=== PATIENT | male | born 1955 | race Asian ===

== ENCOUNTER 2018-09-22 08:49 | Outpatient (CLI) | payer BC, SELFPAY ==
[2018-09-22 09:04] VITALS: BP 143/70; PULSE 63; RESP 18; TEMP 36.6; O2SAT 99
[2018-09-22 09:16] LABS: INR 1.1 (0.9-1.1); Prothrombin Time 10.5 sec (9.3-11.0)
[2018-09-22] MEDS: Lactated Ringers 1,000 ML 80 ML IV (10:06)
[2018-09-22] MEDS: Midazolam 2 MG/2 ML VIAL IVP (10:06)
[2018-09-22 10:17] VITALS: BP 153/70; PULSE 70; RESP 20; O2SAT 100
[2018-09-22] MEDS: methylPREDNISolone ACETATE 40 MG/ML VIAL IJ (10:19)
[2018-09-22] MEDS: Omnipaque 240 MG/ML 50 ML BTL IJ (10:19)
--- NOTE | 2018-09-22 10:22 | DI.RAD_ITS ---
SYMPTOM/DIAGNOSIS: CERVICAL RADICULOPATHY, CERVICAL EPIDURAL STEROID INJECTION C-ARM: Fluoroscopy Time: 19.1 sec 2.13 Images submitted from the pain clinic demonstrate needle positioning over the lower cervical spine during the performance of a cervical epidural steroid injection. Please see Dr. Brown's procedure report for further information.
--- NOTE | 2018-09-22 10:24 | PDOC.PAIN ---
Pain Clinic Procedure Note Current Active Problems Problem Status Onset Cervical radiculopathy at C7 Chronic 03/03/16 Cervical Epidural Steroid Injection CASSI CORRIGAN has been referred to the [facility] for cervical epidural steroid injection. COMMENTS:The patient has stenosis in the foramen on the left at C6-7. He had an injection approximately a year ago with good relief. Patient was interviewed and the medical record reviewed. There were no medical, pharmacologic, radiographic or other structural contraindications to attempting fluoroscopically guided epidural steroid injection. Risks and expected side effects as well as potential benefit of the procedure were reviewed and voiced concerns addressed. The printed consent form was signed and witnessed. Standard time-out procedure was performed. The patient was placed in the prone position on the fluoroscopy table and automated blood pressure cuff and pulse oximeter applied. The skin entry point for entering the epidural space by a midline C7-T1 interlaminar approach was identified under fluoroscopy and marked. Following thorough Chlorhexadine preparation of the skin and draping and 1% lidocaine infiltration of the skin entry point and subcutaneous tissues, an 17 gauge Tuohy needle was placed under fluoroscopic guidance and with loss of resistance technique into the epidural space. Upon needle placement and loss of resistance there were no paresthesiae or return of blood or CSF through the needle. An Arrow catheter was thread cephalad to the C6 level {left} of midline. 1ml of Omnipaque 240 were injected with clear epidural spread in the A/P, lateral and oblique views. 80mg Depomedrol with 1ml sterile normal saline were injected through the catheter with no unusual discomfort expressed. Vital signs were stable throughout the procedure and were as recorded in the docflowsheet by the nursing staff. If given, dosages of intravenous drugs for anxiolysis and analgesia were documented in MAR. Follow up plans and appointments were discussed. Post procedure instruction was given as documented in nursing documentation and having met discharge criteria and was discharged from the [facility]. COMMENTS: Versed 1 mg given. He will follow-up as needed. Could repeat if he gets long-term relief otherwise would get an updated MRI of his cervical spine. Last one was from 2017. CC: Guerita Vásquez
== END 2018-09-22 09:09 ==
PROVIDERS: PCP Family Medicine; Visit Provider Anesthesiology Pain Medicine
DX: M54.12 Radiculopathy, cervical region (principal)
CPT/HCPCS: 62321; 72040; 85610; J1030; J2250; Q9967

== ENCOUNTER 2018-10-01 01:32 | Outpatient (CLI) | payer BC, SELFPAY ==
--- NOTE | 2018-10-01 12:45 | DI.RAD_ITS ---
SYMPTOMS/DIAGNOSIS: BACK PAIN, M54.9, LEG PAIN, M79.606, S/P LUMBAR FUSION, Z98.1 LUMBOSACRAL SPINE: Multiple views were obtained including flexion and extension lateral views. There are Mcarthur rods in place at L4-5 bilaterally with disc prosthesis also noted at L4-5. Moderate hypertrophic spurring of the vertebral endplates is noted, particularly at L3-4. There is probable fusion of the L5 and S1 endplates. No spondylolysis or spondylolisthesis. No evidence of compression fracture. Flexion and extension views are unremarkable.
== END 2018-10-01 01:52 ==
PROVIDERS: PCP Family Medicine; Visit Provider Neurological Surgery
DX: M54.5 Low back pain (principal); M79.606 Pain in leg, unspecified; Z98.1 Arthrodesis status
CPT/HCPCS: 72110

== ENCOUNTER 2018-12-22 00:39 | Outpatient (CLI) | payer BC, SELFPAY ==
--- NOTE | 2018-12-22 09:44 | DI.MRI_ITS ---
SYMPTOM/DIAGNOSIS: FAILED BACK SURGERY SYNDROME, L4-5 FUSION IN 2018, M96.1 MRI LUMBAR SPINE: Pre and post contrast MRI of the lumbar spine was obtained. Comparison 04/07/17 Since the prior examination the patient has undergone posterior L4 and l5 laminectomy with posterior spinal fusion rods and pedicle screws. The conus medullaris has a normal appearance and location. There is degenerative disc disease throughout the lumbar spine. End plate degenerative signal changes are seen at L2-3, L3-4, L4-5 and L5-S1. No definite central spinal canal stenosis is present. There does appear to be apparent mild bilateral neuroforaminal stenosis at L5-S1 and L4-L5. The remaining neural foramen appear patent. Following contrast administration, no abnormal enhancement is identified. No abnormal focal fluid collections are seen in the soft tissues to suggest abscess. There does appear to be mild anterolisthesis of L5 on S1. This is unchanged compared to the prior examination. IMPRESSION: 1. Post surgical changes at L5-S1 2. Multilevel neuroforaminal narrowing. No significant central spinal canal stenosis 3. Study is limited due to orthopaedic artifact.
[2018-12-22 11:13] LABS: CREATININE 0.74 mg/dL (0.70-1.30)
[2018-12-22] MEDS: Normal Saline Flush 10 ML SYR IVP (11:37)
[2018-12-22] MEDS: Gadoterate meglumine 20 ML VIAL 14 ML IVP (11:38)
== END 2018-12-22 00:59 ==
PROVIDERS: PCP Family Medicine; Visit Provider Nurse Practitioner Family
DX: M96.1 Postlaminectomy syndrome, not elsewhere classified (principal); Z98.1 Arthrodesis status
CPT/HCPCS: 72158; 82565

== ENCOUNTER 2019-01-13 11:16 | Outpatient (CLI) | payer BC, SELFPAY ==
[2019-01-13 11:20] VITALS: BP 114/61; PULSE 72; RESP 18; TEMP 36.5; O2SAT 100
[2019-01-13 11:58] LABS: INR 1.3 (0.9-1.1); Prothrombin Time 12.7 sec (9.3-11.0)
[2019-01-13] MEDS: Dexamethasone Sod. Phos./Pres-Free 10 MG/ML VIAL IJ (12:20)
[2019-01-13] MEDS: Omnipaque 240 MG/ML 50 ML BTL IJ (12:25)
--- NOTE | 2019-01-13 12:27 | PDOC.PAIN_ITS ---
Pain Clinic Procedure Note Current Active Problems Problem Status Onset Lumbosacral radiculopathy LUMBAR / SACRAL TRANSFORAMINAL INJECTION CASSI CORRIGAN has been referred to the [facility] for a transforaminal nerve root block and steroid injection. COMMENTS: Previously evaluated by Ms. Hood in our clinic. Patient was interviewed and the medical record reviewed. There were no medical, pharmacologic, radiographic or other structural contraindications to attempting fluoroscopically guided transforaminal nerve root block and epidural steroid injection. Risks and expected side effects as well as potential benefit of the procedure were reviewed and voiced concerns addressed. The printed consent form was signed and witnessed. Standard time-out procedure was performed. Patient was placed in the prone position on the fluoroscopy table and automated blood pressure cuff and pulse oximeter applied. Fluoroscopy was utilized to identify the left neural foramen between L5 and S1. A skin bela was made for the needle insertion site. A Chlorhexadine prep was carried out, and sterile drapes were applied. Local anesthesia was achieved in the skin and subcutaneous tissues. A 22 gauge curved tip spinal needle was then inserted, advanced with fluoroscopic guidance into the neural foramen, confirmed on the lateral view. After negative aspiration, 2 ml of Omnipaque 240 was injected confirming position in A/P and lateral views. This showed a good spread of dye transforaminally into the epidural space. There was no vascular update with contrast injection under continuous fluoroscopy and digital substraction. 15 mg of Dexamethasone was injected, followed by 0.5 ml of 1% Xylocaine flush for the nerve root block, as well. There was no unusual discomfort expressed.The needle was withdrawn. The patient tolerated the procedure well. A Band-Aid was applied. Vital signs were stable throughout the procedure and were as recorded in nursing records. If given, dosages of intravenous drugs for anxiolysis and analgesia were documented in nursing records. Follow up plans and appointments were discussed. Post procedure instruction was given as documented in nursing records and patient was discharged in the care of an identified coal tram driver. COMMENTS: This procedure can be completed up to 3 times per 12 months if it is found to be effective. CC: Guerita Vásquez
--- NOTE | 2019-01-13 12:28 | DI.RAD_ITS ---
SYMPTOMS/DIAGNOSIS: LUMBAR TRANSFORAMINAL INJECTION, LUMBAR RADICULOPATHY C-ARM FLUOROSCOPY: Fluoroscopy Time: 25.4 sec., 5.18 mGy. C-arm fluoroscopy was utilized by Dr. Wagoner during reported lumbar transforaminal injection. Hardcopy shows injection on the left at what appears to be the L 5 - S 1 level.
[2019-01-13 12:33] VITALS: BP 156/77; PULSE 69; RESP 20; O2SAT 99
== END 2019-01-13 11:36 ==
PROVIDERS: PCP Family Medicine; Visit Provider Preventive Medicine Occupational Medicine
DX: M54.17 Radiculopathy, lumbosacral region (principal)
CPT/HCPCS: 64483; 36415; 72100; 85610; Q9967

== ENCOUNTER 2019-01-24 01:08 | Outpatient (CLI) | payer BC, SELFPAY ==
--- NOTE | 2019-01-24 15:33 | DI.US_ITS ---
SYMPTOM/DIAGNOSIS: R/O HYDRONEPHROSIS R39.9 RENAL ULTRASOUND: Comparison is made with 29 June 2017. The kidneys are normal in size and echogenicity and show normal parenchymal thickness No hydronephrosis is seen. There are no large renal calculi. The prostate volume measures 17 cc. The prevoid bladder volume measures 129 cc. Both ureteral jets were visualized. No bladder mass is identified. There is no post void residual in the bladder. IMPRESSION: Negative enal ultrasound. No evidence of hydronephrosis.
== END 2019-01-24 01:28 ==
PROVIDERS: PCP Family Medicine; Visit Provider Urology
DX: R39.9 Unspecified symptoms and signs involving the genitourinary system (principal)
CPT/HCPCS: 76770

== ENCOUNTER 2019-02-14 08:44 | Outpatient (CLI) | payer BC, SELFPAY ==
[2019-02-15 09:42] LABS: PSA, Screening 0.2 ng/ml (0-4.5)
== END 2019-02-14 09:04 ==
PROVIDERS: PCP Family Medicine; Visit Provider Urology
DX: R39.9 Unspecified symptoms and signs involving the genitourinary system (principal); Z12.5 Encounter for screening for malignant neoplasm of prostate
CPT/HCPCS: 36415; 84153

== ENCOUNTER 2019-07-12 07:45 | Outpatient (CLI) | payer BC, SELFPAY ==
[2019-07-12 08:23] VITALS: BP 148/69; PULSE 57; RESP 16; TEMP 36; O2SAT 99
[2019-07-12 08:40] LABS: INR 1.1 (0.9-1.1); Prothrombin Time 11.4 sec (9.3-11.0)
--- NOTE | 2019-07-12 08:51 | PDOC.PAIN ---
Pain Clinic Procedure Note Procedure Note Procedure Note: Cervical Epidural Steroid Injection CASSI CORRIGAN has been referred to the [facility] for interlaminar cervical epidural steroid injection. Pre-operative diagnosis: cervical radiculopathy Post-operative diagnosis: same as above COMMENTS: patient has prior ACDF and had received prior MEETA with extended pain relief. his pain involves neck and left upper extremity. He takes Coumadin for mechanical aortic valve, he discontinued his coumadin for today's procedure and INR checked this AM is 1.1 Patient was interviewed and the medical record reviewed. There were no medical, pharmacologic, radiographic or other structural contraindications to attempting fluoroscopically guided epidural steroid injection. Risks and expected side effects as well as potential benefit of the procedure were reviewed and voiced concerns addressed. The printed consent form was signed and witnessed. Standard time-out procedure was performed. The patient was placed in the prone position on the fluoroscopy table and automated blood pressure cuff and pulse oximeter applied. The skin entry point for entering the epidural space by a midlineT1-T2 interlaminar approach was identified under fluoroscopy and marked. Following thorough Chlorhexadine preparation of the skin and draping and 1% lidocaine infiltration of the skin entry point and subcutaneous tissues, an 17 gauge Tuohy needle was placed under fluoroscopic guidance and with loss of resistance technique into the epidural space. Upon needle placement and loss of resistance there were no paresthesiae or return of blood or CSF through the needle. Then a 19 gauge Arrow catheter was threaded into the epidural space to approximately C5-6 level. 1ml of Omnipaque 240 were injected with clear epidural spread in the A/P, oblique views. 15mg of preservative-free Dexamethasone with 1ml sterile normal saline were injected through the needle with no unusual discomfort expressed. The needle was removed without difficulty. A bandage was placed. Vital signs were stable throughout the procedure and were as recorded in the docflowsheet by the nursing staff. If given, dosages of intravenous drugs for anxiolysis and analgesia were documented in MAR. Follow up plans and appointments were discussed. Post procedure instruction was given as documented in nursing documentation and having met discharge criteria and was discharged from the [facility]. COMMENTS: patient received IV versed 1mg for this procedure. Otherwise tolerated procedure without issue. Jeri Mendoza MD Pain Management CC: Guerita Vásquez
[2019-07-12] MEDS: Lactated Ringers 1,000 ML 80 ML IV (09:14)
[2019-07-12] MEDS: Midazolam 2 MG/2 ML VIAL IVP (09:18)
[2019-07-12 09:30] VITALS: BP 161/74; PULSE 65; RESP 20; O2SAT 100
[2019-07-12] MEDS: Dexamethasone Sod. Phos./Pres-Free 10 MG/ML VIAL IJ (09:32)
[2019-07-12] MEDS: Omnipaque 240 MG/ML 50 ML BTL IJ (09:33)
--- NOTE | 2019-07-12 10:24 | DI.RAD_ITS ---
EXAM: XR PAIN CLINIC CERVICAL SP 2V CLINICAL HISTORY: Dx: cervical radiculopathy,CERVICAL EPIDURAL STEROID INJECTION TECHNIQUE: Fluoroscopy was provided for the referring physician for guidance with performing injecti on procedure. COMPARISON: No exams were available for comparison FINDINGS: Please see procedure note for details. Fluoro time: 37.8 seconds
== END 2019-07-12 08:05 ==
PROVIDERS: PCP Family Medicine; Visit Provider Internal Medicine
DX: M54.12 Radiculopathy, cervical region (principal)
CPT/HCPCS: 62321; 72040; 85610; J2250; Q9967

== ENCOUNTER 2019-11-04 11:06 | Outpatient (REF) | payer BC, SELFPAY ==
[2019-11-04 20:42] LABS: HGB 14.2 g/dL (13.5-17.5); Mean Corpuscular Hemoglobin 26.8 pg (27.0-33.0); Mean Corpuscular Volume 81.3 fL (80-95); Mean Platelet Volume 11.2 fL (8.0-11.0); Platelet Count 245 x1000/uL (130-400); RBC 5.29 m/cumm (4.50-6.00); RBC Distribution Width 14.7 % (11.8-14.1); White Blood Cell Count 5.37 k/cumm (4.4-10.8)
[2019-11-04 20:45] LABS: ALT 29 U/L (16-63); AST 20 U/L (15-37); Albumin 3.9 g/dL (3.4-5.0); Alkaline Phosphatase 56 U/L (46-116); Anion Gap 6.6 mmol/L (3-11); BUN 23 mg/dL (7-18); Bilirubin, Total 0.6 mg/dL (0.2-1.0); CO2 26.4 mmol/L (21.0-32.0); CREATININE 0.87 mg/dL (0.70-1.30); Calculated LDL 108 mg/dL (<100); Chloride 105 mmol/L (98-107); Cholesterol 175 mg/dL (<200); Glucose 97 mg/dL (74-106); HDL Cholesterol 52 mg/dL (40-60); Potassium 4.3 mmol/L (3.5-5.1); Sodium 138 mmol/L (136-145); Total Protein 6.6 g/dL (6.4-8.2); Triglyceride 75 mg/dL (<150)
== END 2019-11-04 11:26 ==
LOC: NCHCN 11:06
PROVIDERS: PCP Family Medicine; Visit Provider Family Medicine
DX: Z00.00 Encounter for general adult medical examination without abnormal findings (principal); I10 Essential (primary) hypertension; Z95.2 Presence of prosthetic heart valve
CPT/HCPCS: 80053; 80061; 85027

== ENCOUNTER 2019-11-17 13:24 | Outpatient (CLI) | payer BC, SELFPAY ==
[2019-11-17 13:41] VITALS: BP 108/69; PULSE 67; RESP 16; TEMP 36.1; O2SAT 99
[2019-11-17] MEDS: Omnipaque 240 MG/ML 50 ML BTL IJ (14:41)
[2019-11-17] MEDS: Dexamethasone Sod. Phos./Pres-Free 10 MG/ML VIAL IJ (14:41)
--- NOTE | 2019-11-17 14:44 | DI.RAD_ITS ---
EXAM: XR PAIN CLINIC LUMBAR SP 2V CLINICAL HISTORY: Dx: Lumbar Radiculopathy, TRANSFORAMINAL EPIDURAL STEROID INJECTION TECHNIQUE: Fluoroscopy was provided for the referring physician for guidance with performing injecti on procedure. COMPARISON: No exams were available for comparison FINDINGS: Please see procedure note for details. Fluoro time: 31.1 SECONDS RADIATION DOSE DELIVERED:
[2019-11-17 14:55] VITALS: BP 139/76; PULSE 60; RESP 19; O2SAT 100
== END 2019-11-17 13:44 ==
PROVIDERS: PCP Family Medicine; Visit Provider Preventive Medicine Occupational Medicine
DX: M54.17 Radiculopathy, lumbosacral region (principal)
CPT/HCPCS: 64483; 72100; Q9967

== ENCOUNTER 2019-11-17 13:40 | Outpatient (CLI) | payer BC, SELFPAY ==
[2019-11-17 14:03] LABS: INR 1.3 (0.9-1.1); Prothrombin Time 13.1 sec (9.3-11.0)
--- NOTE | 2019-11-17 14:46 | PDOC.PAIN ---
Pain Clinic Procedure Note Procedure Note Procedure Note: LUMBAR / SACRAL TRANSFORAMINAL INJECTION at the Left L5 CASSI CORRIGAN has been referred to the [facility] for a transforaminal nerve root block and steroid injection. COMMENTS: He had great pain relief until this past July from his December 2018 TFESI at left L5. DX: Lumbosacral radiculopathy Patient was interviewed and the medical record reviewed. There were no medical, pharmacologic, radiographic or other structural contraindications to attempting fluoroscopically guided transforaminal nerve root block and epidural steroid injection. Risks and expected side effects as well as potential benefit of the procedure were reviewed and voiced concerns addressed. The printed consent form was signed and witnessed. Standard time-out procedure was performed. Patient was placed in the prone position on the fluoroscopy table and automated blood pressure cuff and pulse oximeter applied. Fluoroscopy was utilized to identify the left L5 neural foramen between L5 and S1. A skin bela was made for the needle insertion site. A Chlorhexadine prep was carried out, and sterile drapes were applied. Local anesthesia was achieved in the skin and subcutaneous tissues. A 22 gauge curved tip spinal needle was then inserted, advanced with fluoroscopic guidance into the neural foramen, confirmed on the lateral view. After negative aspiration, 2 ml of Omnipaque 240 was injected confirming position in A/P and lateral views. This showed a good spread of dye transforaminally into the epidural space. There was no vascular update with contrast injection under continuous fluoroscopy and digital substraction. 15 mg of Dexamethasone was injected, followed by 0.5 ml of 1% Xylocaine flush for the nerve root block, as well. There was no unusual discomfort expressed.The needle was withdrawn. The patient tolerated the procedure well. A Band-Aid was applied. Vital signs were stable throughout the procedure and were as recorded in nursing records. If given, dosages of intravenous drugs for anxiolysis and analgesia were documented in nursing records. Follow up plans and appointments were discussed. Post procedure instruction was given as documented in nursing records and patient was discharged in the care of an identified electric pile driver operator. COMMENTS:Reproduction of his left leg pain with this procedure. Near complete pain relief after the procedure. CC: Guerita Vásquez
== END 2019-11-17 14:00 ==
LOC: LBN 13:46 → LBO 13:47
PROVIDERS: PCP Family Medicine; Visit Provider Preventive Medicine Occupational Medicine
DX: M54.17 Radiculopathy, lumbosacral region (principal); Z79.01 Long term (current) use of anticoagulants
CPT/HCPCS: 36415; 85610

== ENCOUNTER 2019-12-26 01:26 | Outpatient (CLI) | payer BC, SELFPAY ==
--- NOTE | 2019-12-26 | DI.MRI_ITS ---
EXAM: MR CERVICAL SPINE WO/W CLINICAL HISTORY: CERVICAL MYELOPATHY, PRIOR ACDF C5-6 TECHNIQUE: Multiplanar multisequence MRI of the cervical spine was performed without intravenous con trast. COMPARISON: MR MRI - CERVICAL SPINE W/WO from 05/09/2015 CR XR lumbar spine complete from 10/01/2018 FINDINGS: BONES: Vertebral body heights are maintained. Intervertebral disc spaces are normal. Alignment is nor mal. Bone marrow signal intensity is within normal limits. The patient is status post anterior fusio n at C5-6. Metallic hardware causes mild artifact. CERVICAL CORD: Craniovertebral junction is unremarkable. The cervical cord is normal size and signal intensity. SOFT TISSUES: Unremarkable. C2-3: Minimal disc bulging C3-4: Disc osteophytes eccentric toward the left causing left neural foraminal narrowing and effaceme nt of the anterior CSF space. C4-5: Mild loss of disc height. Broad-based disc osteophytes causing bilateral neural foraminal narr owing and effacement of the anterior CSF space. C5-6: Level of cervical fusion. Mild bilateral neural foraminal narrowing. No central canal stenosi s. C6-7: Broad-based disc osteophytes causing bilateral neural foraminal narrowing and mild effacement o f the anterior CSF space. C7-T1: No disc herniation or bulge is identified. IMPRESSION: Status post anterior fusion at C5-6. Multi level degenerative disc changes causing effacement of the anterior CSF space and neural foraminal narrowing. DATA REPOSITORY:
[2019-12-26] MEDS: Normal Saline Flush 10 ML SYR IVP (15:47)
[2019-12-26] MEDS: Gadoterate meglumine 20 ML VIAL 15 ML IVP (15:49)
== END 2019-12-26 01:46 ==
PROVIDERS: PCP Family Medicine; Visit Provider Nurse Practitioner Family
DX: M50.01 Cervical disc disorder with myelopathy, high cervical region (principal)
CPT/HCPCS: 72156

== ENCOUNTER 2020-01-31 08:07 | Outpatient (CLI) | payer BC, SELFPAY ==
--- NOTE | 2020-01-31 06:00 | DI.RAD_ITS ---
EXAM: XR PAIN CLINIC CERVICAL SP 2V CLINICAL HISTORY: Dx: Cervical Radiculopathy TECHNIQUE: 2D and realtime digital imaging was performed. CONTRAST MATERIAL: Refer to procedure report. COMPARISON: No exams were available for comparison FINDINGS: Fluoroscopy was provided for Dr. Mendoza during the performance of a cervical epidural steroid injection. Please refer to the procedure report for complete details. Fluoro time: 38.1 seconds IMPRESSION:
[2020-01-31 08:19] VITALS: BP 143/71; PULSE 64; RESP 16; TEMP 37; O2SAT 100
[2020-01-31 08:39] LABS: INR 1.1 (0.9-1.1); Prothrombin Time 11.2 sec (9.3-11.0)
[2020-01-31] MEDS: Lactated Ringers 1,000 ML 80 ML IV (09:22)
[2020-01-31] MEDS: Midazolam 2 MG/2 ML VIAL IVP (09:26)
[2020-01-31 09:39] VITALS: BP 140/72; PULSE 70; RESP 14; O2SAT 100
[2020-01-31] MEDS: Dexamethasone Sod. Phos./Pres-Free 10 MG/ML VIAL IJ (09:40)
[2020-01-31] MEDS: Omnipaque 240 MG/ML 50 ML BTL IJ (09:40)
--- NOTE | 2020-01-31 09:47 | PDOC.PAIN_ITS ---
Pain Clinic Procedure Note Procedure Note Procedure Note: Cervical Epidural Steroid Injection CASSI CORRIGAN has been referred to the [facility] for interlaminar cervical epidural steroid injection. Pre-operative diagnosis: cervical radiculopathy, cervical post-laminectomy s yndrome Post-operative diagnosis: same as above COMMENTS: patient has prior ACDF and had received prior MEETA with extended pain relief. his pain involves neck and left upper extremity. He takes Coumadin for mechanical aortic valve, he discontinued his coumadin for today's procedure and INR checked this AM is 1.1. patient reports last injection done in 07/2019 provided significant improvement of his symptoms until about mid-November. He had a recent lumbar TFESI which he is unclear how much pain relief he has gotten. He feels his leg symptoms is related to his neck symptom, and he attributes all of this to his prior rheumatic fever causing spine related pine and urologic symptoms. Patient was interviewed and the medical record reviewed. There were no medical, pharmacologic, radiographic or other structural contraindications to attempting fluoroscopically guided epidural steroid injection. Risks and expected side effects as well as potential benefit of the procedure were reviewed and voiced concerns addressed. The printed consent form was signed and witnessed. Standard time-out procedure was performed. The patient was placed in the prone position on the fluoroscopy table and automated blood pressure cuff and pulse oximeter applied. The skin entry point for entering the epidural space by a midlineT1-T2 interlaminar approach was identified under fluoroscopy and marked. Following thorough Chlorhexadine preparation of the skin and draping and 1% lidocaine infiltration of the skin entry point and subcutaneous tissues, an 17 gauge Tuohy needle was placed under fluoroscopic guidance and with loss of resistance technique into the epidural space. Upon needle placement and loss of resistance there were no paresthesiae or return of blood or CSF through the needle. Then a 19 gauge Arrow catheter was threaded into the epidural space to approximately C4 level. 1ml of Omnipaque 240 were injected with clear epidural spread in the A/P, oblique views. 15mg of preservative-free Dexamethasone with 0.5ml sterile normal saline were injected through the needle with no unusual discomfort expressed. The needle was removed without difficulty. A bandage was placed. Vital signs were stable throughout the procedure and were as recorded in the docflowsheet by the nursing staff. If given, dosages of intravenous drugs for anxiolysis and analgesia were documented in MAR. Follow up plans and appointments were discussed. Post procedure instruction was given as documented in nursing documentation and having met discharge criteria and was discharged from the [facility]. COMMENTS: patient received IV versed 1mg for this procedure. Otherwise tolerated procedure without issue. Patient feels anxious before cervical epidural injections and appreciates IV anxiolysis. Jeri Mendoza MD Pain Management CC: Guerita Vásquez
--- NOTE | 2020-03-27 13:14 | PDOC.PAIN ---
Pain Clinic Procedure Note Procedure Note Procedure Note: I called patient at his request to answer questions prior to his scheduled lumbar TFESI. patient reports that he has back pain that radiates down both legs. He is wondering if his next procedure can cover a bigger symptomatic area than one specific nerve. I discussed with him that we can use a caudal IAN approach instead of left L5 TFESI, given his prior history of lumbar spine surgery. He is in agreement and understanding. Of note, he reported that he was diangosed with rheumatic fever about 50 years ago and he was placed on strict bed rest that lasted for amost 15 months, ever since then, he feels that his spine has gotten deconditioned and both neck and lumbar areas has flare ups. he is doing well since his last MEETA, near resolution of his radicular symptoms but continue to have axial neck pain. I would change his next TFESI to caudal IAN. Coumadin should be discontinued and INR/PT should be checked on day of procedure. INR should be 1.2 or less. Jeri Mendoza MD Pain Management
== END 2020-01-31 08:27 ==
PROVIDERS: PCP Family Medicine; Visit Provider Internal Medicine
DX: M54.12 Radiculopathy, cervical region (principal); M96.1 Postlaminectomy syndrome, not elsewhere classified
CPT/HCPCS: 36415; 62321; 72040; 85610; J2250; Q9967

== ENCOUNTER 2020-04-10 07:58 | Outpatient (CLI) | payer BC, SELFPAY ==
--- NOTE | 2020-04-10 06:00 | DI.RAD_ITS ---
EXAM: XR PAIN CLINIC LUMBAR SP 2V CLINICAL HISTORY: Dx:Lumbar Radiculopathy TECHNIQUE: 2D and realtime digital imaging was performed. CONTRAST MATERIAL: Refer to procedure report. COMPARISON: No exams were available for comparison FINDINGS: Fluoroscopy was provided for Dr. Mendoza during the performance of a lumbosacral injection. Please refer to the procedure report for complete details. Fluoro time: 22.3 seconds IMPRESSION:
[2020-04-10 08:01] VITALS: BP 145/73; PULSE 82; RESP 18; TEMP 37.1; O2SAT 100
[2020-04-10 08:29] LABS: INR 1.2 (0.9-1.1); Prothrombin Time 11.8 sec (9.3-11.0)
[2020-04-10 09:42] VITALS: BP 145/58; PULSE 70; RESP 17; O2SAT 100
[2020-04-10] MEDS: Lidocaine 1% Pres-Free 5 ML VIAL (09:52)
[2020-04-10] MEDS: Normal Saline 20 ML VIAL (09:52)
[2020-04-10] MEDS: methylPREDNISolone ACETATE 80 MG/ML VIAL IJ (09:53)
[2020-04-10] MEDS: Omnipaque 240 MG/ML 50 ML BTL IJ (09:53)
--- NOTE | 2020-04-10 13:36 | PDOC.PAIN ---
Pain Clinic Procedure Note Procedure Note Procedure Note: CANDAL EPIDURAL STEROID WITH CATHETER INJECTION PROCEDURE NOTE Pre-operative diagnosis: lumbar radiculopathy COMMENTS: patient has previous instrumented fusion surgery and has back and bilateral leg pain. CASSI CORRIGAN has been referred to the [facility] for lumbar epidural steroid injection. Patient was greeted by the nurse who verified patients name and . Patient was then taken to the fluoroscopy suite. Patient was interviewed and the medical record reviewed. There were no medical, pharmacologic, radiographic, or other structural contraindications to attempting fluoroscopically guided lumbar epidural steroid injection. Risks and expected side effects as well as potential benefits of the procedure were reviewed and voiced concerns addressed. The patient consent form was signed and witnessed. Standard time-out procedure was performed. Patient was placed in the prone position on the fluoroscopy table and automated blood pressure cuff and pulse oximeter applied. The skin entry point for entering/approaching the epidural space by a sacral hiatus and marked. Following thorough chlorhexadine preparation of the skin and draping and 1% lidocaine infiltration of the skin entry point and subcutaneous tissues, a 17 gauge Touhy needle was placed under fluoroscopic guidance and with loss of resistance technique into the epidural space. Needle tip placement and depth were aided and confirmed by fluoroscopy. There was no paresthesia or return of blood or CSF through the needle. An Arrow cath was thread to the L5-S1 and 1 cc's of Omnipaque 240 was injected with clear epidural spread confirmed with fluoroscopy. 80mg depomedrol was injected. There was not any unusual discomfort expressed. additional 1cc of preservative free 1% lidocaine and 1cc of preservative free normal saline was injected. needle was removed without difficulty. Vital signs were stable throughout the procedure and were as recorded in nursing records. Follow up plans and appointments were discussed.Post procedure instruction was given as documented in nursing records and having met discharge criteria and was discharged from the [facility]. Jeri Mendoza MD Pain Management
== END 2020-04-10 08:18 ==
PROVIDERS: PCP Family Medicine; Visit Provider Internal Medicine
DX: M54.16 Radiculopathy, lumbar region (principal)
CPT/HCPCS: 36415; 62323; 72100; 85610; J1040; Q9967

== ENCOUNTER 2020-06-20 08:08 | Outpatient (CLI) | payer BC, SELFPAY ==
[2020-06-20 08:22] VITALS: BP 126/74; PULSE 64; RESP 17; TEMP 37.2; O2SAT 97
[2020-06-20 08:35] LABS: INR 1.1 (0.9-1.1); Prothrombin Time 11.4 sec (9.3-11.0)
[2020-06-20] MEDS: Lactated Ringers 1,000 ML 80 ML IV (09:06)
[2020-06-20] MEDS: Midazolam 2 MG/2 ML VIAL IVP (09:12)
[2020-06-20 09:27] VITALS: BP 152/66; PULSE 72; RESP 17; O2SAT 100
[2020-06-20] MEDS: Omnipaque 240 MG/ML 50 ML BTL IJ (09:29)
[2020-06-20] MEDS: Dexamethasone Sod. Phos./Pres-Free 10 MG/ML VIAL IJ (09:29)
--- NOTE | 2020-06-20 09:29 | PDOC.PAIN ---
Pain Clinic Procedure Note Procedure Note Procedure Note: Date of procedure: 06/20/20 Cervical Epidural Steroid Injection CASSI CORRIGAN has been referred to the [facility] for cervical epidural steroid injection. COMMENTS:He has bilateral facial pain and significant disc osteophyte complete at C3-C4 with bilateral foraminal compression. We discussed completing this procedure with a catheter and running this catheter from a safe entry point up to the C3 area. He was in agreement. He is on Coumadin and has been off for 3 days per his provider's guidance. His INR this AM was 1.1. MEENU was interviewed and the medical record reviewed. There were no medical, pharmacologic, radiographic or other structural contraindications to attempting fluoroscopically guided epidural steroid injection. Risks and expected side effects as well as potential benefit of the procedure were reviewed with MEENU , and MEENU voiced concerns addressed. The printed consent form was signed and witnessed. Standard time-out procedure was performed. The patient was placed in the prone position on the fluoroscopy table and automated blood pressure cuff and pulse oximeter applied. The skin entry point for entering the epidural space by a midline T1-T2 interlaminar approach was identified under fluoroscopy and marked. I used the T1-T2 interspace as this space gave me the most interlaminar space to approach the epidural space with a deep angle. This angle helps allow the catheter to come out of the needle with limited compression of the dura/cord. Following thorough Chlorhexadine preparation of the skin and draping and 1% lidocaine infiltration of the skin entry point and subcutaneous tissues, an 17 gauge Tuohy needle was placed under fluoroscopic guidance and with loss of resistance technique into the T1-T2 epidural space. Upon needle placement and loss of resistance there were no paresthesiae or return of blood or CSF through the needle. 1 cc of Omnipaque 240 was injected with clear epidural spread in the A/P, lateral and oblique views. I then placed the 19G catheter through the needle and was able to advance this catheter in the midline position to the C3 vertebral body level. 15 mg of preservative free Dexomethasone was injected with no unusual discomfort expressed by MEENU. This was flushed with 1 cc of normal saline. The needle and catheter were removed together without difficulty. MEENU 's vital signs were stable throughout the procedure and were as recorded in the docflowsheet by the nursing staff. Follow up plans and appointments were discussed with the MEENU. Post procedure instruction was given as documented in nursing documentation and having met discharge criteria, MEENU was discharged from the [facility]. COMMENTS: He did well with the procedure. This procedure can be completed up to 3 times per 12 months if it is found to be effective. Murali Wagoner DO, MPH Pain Management CC: Guerita Vásquez
--- NOTE | 2020-06-20 09:40 | DI.RAD_ITS ---
EXAM: XR PAIN CLINIC CERVICAL SP 2V CLINICAL HISTORY: Dx: Cervical Radiculopathy TECHNIQUE: 2D and realtime digital imaging was performed. CONTRAST MATERIAL: Refer to procedure report. COMPARISON: No exams were available for comparison FINDINGS: Fluoroscopy was provided for Dr. Wagoner during the performance of a cervical epidural steroid injectio n. Please refer to the procedure report for complete details. Fluoro time: 51.7 seconds IMPRESSION:
== END 2020-06-20 08:28 ==
PROVIDERS: PCP Family Medicine; Visit Provider Preventive Medicine Occupational Medicine
DX: M54.12 Radiculopathy, cervical region (principal)
CPT/HCPCS: 62321; 72040; 85610; J2250; Q9967

== ENCOUNTER 2020-09-18 11:08 | Outpatient (CLI) | payer BC, SELFPAY ==
[2020-09-18 11:18] VITALS: BP 155/72; PULSE 65; RESP 17; TEMP 36.6; O2SAT 99
[2020-09-18 11:35] LABS: INR 1.2 (0.9-1.1); Prothrombin Time 11.7 sec (9.3-11.0)
--- NOTE | 2020-09-18 12:20 | DI.RAD_ITS ---
EXAM: XR PAIN CLINIC LUMBAR SP 2V CLINICAL HISTORY: Dx: Lumbar Radiculopathy TECHNIQUE: 2D and realtime digital imaging was performed. COMPARISON: No exams were available for comparison FINDINGS: C-arm fluoroscopy was utilized by Dr. Mendoza during reported lumbar epidural injection. Hard copy shows epidural injection at what appears to be the L5-S1 level. IMPRESSION: RADIATION DOSE DELIVERED: Kar=5.1 mGy
[2020-09-18 12:28] VITALS: BP 127/56; PULSE 65; RESP 12; O2SAT 99
[2020-09-18] MEDS: Omnipaque 240 MG/ML 50 ML BTL IJ (12:30)
[2020-09-18] MEDS: methylPREDNISolone ACETATE 80 MG/ML VIAL IJ (12:31)
[2020-09-18] MEDS: Lidocaine 1% Pres-Free 5 ML VIAL IJ (12:32)
[2020-09-18] MEDS: Normal Saline 20 ML VIAL 10 ML IJ (12:33)
--- NOTE | 2020-09-18 12:39 | PDOC.PAIN ---
Pain Clinic Procedure Note Procedure Note Procedure Note: CAUDAL EPIDURAL STEROID WITH CATHETER INJECTION PROCEDURE NOTE Pre-operative diagnosis: lumbar radiculopathy COMMENTS: patient has previous instrumented fusion surgery and has back and bilateral leg pain. He received last procedure on 04/2020 which provided approximately 4.5 months of pain relief. he stays physically active, is currently planning a fruit garden. He is able to move about with less hip, buttock and leg pain. He did notice leg pain recurring about 3-4 weeks ago, less intense compared to before but still functionally limiting. Pre-procedure VAS pain level is reported as 4 out fo 10. CASSI CORRIGAN has been referred to the [facility] for lumbar epidural steroid injection. Patient was greeted by the nurse who verified patients name and . Patient was then taken to the fluoroscopy suite. Patient was interviewed and the medical record reviewed. There were no medical, pharmacologic, radiographic, or other structural contraindications to attempting fluoroscopically guided lumbar epidural steroid injection. Risks and expected side effects as well as potential benefits of the procedure were reviewed and voiced concerns addressed. The patient consent form was signed and witnessed. Standard time-out procedure was performed. Patient was placed in the prone position on the fluoroscopy table and automated blood pressure cuff and pulse oximeter applied. The skin entry point for entering/approaching the epidural space by a sacral hiatus and marked. Following thorough chlorhexadine preparation of the skin and draping and 1% lidocaine infiltration of the skin entry point and subcutaneous tissues, a 17 gauge Touhy needle was placed under fluoroscopic guidance and with loss of resistance technique into the epidural space. Needle tip placement and depth were aided and confirmed by fluoroscopy. There was no paresthesia or return of blood or CSF through the needle. An Arrow cath was thread to the L5-S1 and 1 cc's of Omnipaque 240 was injected with clear epidural spread confirmed with fluoroscopy. 80mg depomedrol was injected. Additional 1cc of preservative free normal saline mixed with 1% preservative free lidcaine was injected. There was not any unusual discomfort expressed. additional 1cc of preservative free 1% lidocaine and 1cc of preservative free normal saline was injected. needle was removed without difficulty. Vital signs were stable throughout the procedure and were as recorded in nursing records. post-proceure VAS pain score is reported as 1 out of 10. Follow up plans and appointments were discussed.Post procedure instruction was given as documented in nursing records and having met discharge criteria and was discharged from the [facility]. Jeri Mendoza MD Pain Management
== END 2020-09-18 11:09 | disposition home or self-care (01) ==
LOC: PC 11:08
PROVIDERS: PCP Family Medicine; Visit Provider Internal Medicine
DX: M54.16 Radiculopathy, lumbar region (principal)
CPT/HCPCS: 36415; 62323; 72100; 85610; J1040; Q9967

== ENCOUNTER 2020-11-06 08:54 | Outpatient (CLI) | payer BC, SELFPAY ==
[2020-11-06 09:10] VITALS: BP 135/67; PULSE 60; RESP 18; TEMP 37.1; O2SAT 98
[2020-11-06 09:37] LABS: INR 1.1 (0.9-1.1); Prothrombin Time 11.3 sec (9.3-11.0)
[2020-11-06] MEDS: Lactated Ringers 1,000 ML 80 ML IV (10:30)
[2020-11-06] MEDS: Midazolam 2 MG/2 ML VIAL IVP (10:36)
[2020-11-06 10:43] VITALS: BP 132/64; PULSE 67; RESP 19; O2SAT 100
--- NOTE | 2020-11-06 10:46 | DI.RAD_ITS ---
Exam(s) XR PAIN CLINIC CERVICAL SP 2V EXAM: XR PAIN CLINIC CERVICAL SP 2V CLINICAL HISTORY: Dx: Cervical Radiculopathy TECHNIQUE: 2D and realtime digital imaging was performed. CONTRAST MATERIAL: Refer to procedure report. COMPARISON: No exams were available for comparison FINDINGS: Fluoroscopy was provided for Dr. Mendoza during the performance of a cervical steroid injection.. Please refer to the procedure report for complete details. Ka,r=2.65 mGy IMPRESSION:
[2020-11-06] MEDS: Dexamethasone Sod. Phos./Pres-Free 10 MG/ML VIAL IJ (11:01)
[2020-11-06] MEDS: Omnipaque 240 MG/ML 50 ML BTL IJ (11:01)
--- NOTE | 2020-11-06 11:05 | PDOC.PAIN_ITS ---
Pain Clinic Procedure Note Procedure Note Procedure Note: Pain Clinic Procedure Note Procedure Note Procedure Note: Date of procedure: 11/06/2020 Cervical Epidural Steroid Injection CASSI CORRIGAN has been referred to the [facility] for cervical epidural steroid injection. COMMENTS: patient represents for repeat MEETA. He is on Coumadin and has been off for 3 days per his provider's guidance. His INR this AM was 1.1. MEENU was interviewed and the medical record reviewed. There were no medical, pharmacologic, radiographic or other structural contraindications to attempting fluoroscopically guided epidural steroid injection. Risks and expected side effects as well as potential benefit of the procedure were reviewed with MEENU , and MEENU voiced concerns addressed. The printed consent form was signed and witnessed. Standard time-out procedure was performed. The patient was placed in the prone position on the fluoroscopy table and automated blood pressure cuff and pulse oximeter applied. The skin entry point for entering the epidural space by a midline T1-T2 interlaminar approach was identified under fluoroscopy and marked. I used the T1-T2 interspace as this space gave me the most interlaminar space to approach the epidural space with a deep angle. This angle helps allow the catheter to come out of the needle with limited compression of the dura/cord. Following thorough Chlorhexadine preparation of the skin and draping and 1% lidocaine infiltration of the skin e ntry point and subcutaneous tissues, an 17 gauge Tuohy needle was placed under fluoroscopic guidance and with loss of resistance technique into the T1-T2 epidural space. Upon needle placement and loss of resistance there were no paresthesiae or return of blood or CSF through the needle. 1 cc of Omnipaque 240 was injected with clear epidural spread in the A/P, lateral and oblique views. I then placed the 19G catheter through the needle and was able to advance this catheter. 15 mg of preservative free Dexomethasone was injected with no unusual discomfort expressed by MEENU. The needle and catheter were removed together without difficulty. MEENU 's vital signs were stable throughout the procedure and were as recorded in the docflowsheet by the nursing staff. Follow up plans and appointments were discussed with the MEENU. Post procedure instruction was given as documented in nursing documentation and having met discharge criteria, MEENU was discharged from the [facility]. COMMENTS: He did well with the procedure. Patient reports good pain relief for the past six months. Last MEETA was done by Dr Wagoner on 06/2020. Patient pre- procedure VAS score 5/10, post procedure 0/10. Patient received 1mg of IV Versed. Jeri Mendoza MD Pain Management CC:
== END 2020-11-06 08:55 | disposition home or self-care (01) ==
LOC: PC 08:54
PROVIDERS: PCP Family Medicine; Visit Provider Internal Medicine
DX: M54.12 Radiculopathy, cervical region (principal)
CPT/HCPCS: 62321; 72040; 85610; J2250; Q9967

== ENCOUNTER 2021-05-15 15:56 | Outpatient (REF) | payer BC, SELFPAY ==
[2021-05-15 22:22] LABS: Anion Gap 7.4 mmol/L (3-11); BUN 23 mg/dL (7-18); CO2 28.6 mmol/L (21.0-32.0); CREATININE 0.7 mg/dL (0.70-1.30); Chloride 103 mmol/L (98-107); Glucose 90 mg/dL (74-106); Potassium 3.9 mmol/L (3.5-5.1); Sodium 139 mmol/L (136-145)
== END 2021-05-15 15:57 | disposition home or self-care (01) ==
LOC: NCHCN 15:56
PROVIDERS: PCP Family Medicine; Visit Provider Family Medicine
DX: I10 Essential (primary) hypertension (principal)
CPT/HCPCS: 80048

== ENCOUNTER 2021-06-27 07:25 | Outpatient (CLI) | payer BC, SELFPAY ==
[2021-06-27 07:46] VITALS: BP 151/69; PULSE 67; RESP 18; TEMP 37.2; O2SAT 97
[2021-06-27 08:01] LABS: INR 1.1 (0.9-1.1); Prothrombin Time 10.8 sec (9.3-11.0)
--- NOTE | 2021-06-27 08:27 | PDOC.PAIN ---
Pain Clinic Procedure Note Procedure Note Procedure Note: Cervical Epidural Steroid Injection Artem Pedraza has been referred to the [facility] for cervical epidural steroid injection. COMMENTS: He has had CESIs in the past with good success. His last MEETA was 11/06/20. He typically gets 4-6 months of relief from these injections. DX: Cervical radiculopathy Pre-procedure pain VAS: 6/10. Milo was interviewed and the medical record reviewed. There were no medical, pharmacologic, radiographic or other structural contraindications to attempting fluoroscopically guided epidural steroid injection. Risks and expected side effects as well as potential benefit of the procedure were reviewed with Milo , and Milo voiced concerns addressed. The printed consent form was signed and witnessed. Standard time-out procedure was performed. The patient was placed in the prone position on the fluoroscopy table and automated blood pressure cuff and pulse oximeter applied. The skin entry point for entering the epidural space by a midline C7-T1 interlaminar approach was identified under fluoroscopy and marked. Following thorough Chlorhexadine preparation of the skin and draping and 1% lidocaine infiltration of the skin entry point and subcutaneous tissues, an 18 gauge Tuohy needle was placed under fluoroscopic guidance and with loss of resistance technique into the C7-T1 epidural space. Upon needle placement and loss of resistance there were no paresthesiae or return of blood or CSF through the needle. 1 cc of Omnipaque 240 was injected with clear epidural spread in the A/P, lateral and oblique views. 15 mg of preservative free Dexomethasone was injected with no unusual discomfort expressed by Milo. This was flushed with 1 cc of normal saline. Milo 's vital signs were stable throughout the procedure and were as recorded in the docflowsheet by the nursing staff. Follow up plans and appointments were discussed with the Milo. Post procedure instruction was given as documented in nursing documentation and having met discharge criteria, Milo was discharged from the [facility]. COMMENTS: If this procedure is effective, this procedure can be completed up to 3 times per 12 months. His post-procedure pain level on VAS is 2/10. Murali Wagoner DO, MPH [facility]-Pain Management [facility] for [facility] CC: Guerita Vásquez
[2021-06-27] MEDS: Dexamethasone Sod. Phos./Pres-Free 10 MG/ML VIAL IJ ×2 (08:31→08:33)
[2021-06-27] MEDS: Omnipaque 240 MG/ML 50 ML BTL IJ (08:31)
[2021-06-27 08:34] VITALS: BP 167/71; PULSE 68; RESP 18; O2SAT 99
--- NOTE | 2021-06-27 09:00 | DI.RAD_ITS ---
Exam(s) XR PAIN CLINIC CERVICAL SP 2V EXAM: XR PAIN CLINIC CERVICAL SP 2V CLINICAL HISTORY: DX: cervical radiculopathy TECHNIQUE: 2D and realtime digital imaging was performed. CONTRAST MATERIAL: Refer to procedure report. COMPARISON: No exams were available for comparison FINDINGS: Fluoroscopy was provided for Dr. Wagoenr during the performance of a cervical injection. Please refer to the procedure report for complete details. Ka,r=2.4 mGy IMPRESSION:
== END 2021-06-27 07:26 | disposition home or self-care (01) ==
LOC: PC 07:26
PROVIDERS: PCP Family Medicine; Visit Provider Preventive Medicine Occupational Medicine
DX: M54.12 Radiculopathy, cervical region (principal)
CPT/HCPCS: 62321; 36415; 72040; 85610; Q9967

== ENCOUNTER 2021-10-30 08:28 | Outpatient (CLI) | payer BC, SELFPAY ==
[2021-10-30 09:29] LABS: Source Nasal/Nares
[2021-10-30 16:34] LABS: COVID-19 PCR Negative (Negative)
== END 2021-10-30 08:29 | disposition home or self-care (01) ==
PROVIDERS: PCP Family Medicine; Visit Provider Preventive Medicine Occupational Medicine
DX: Z20.822 Contact with and (suspected) exposure to COVID-19 (principal); Z01.818 Encounter for other preprocedural examination
CPT/HCPCS: 87635

== ENCOUNTER 2021-12-18 13:19 | Outpatient (CLI) | payer BC, SELFPAY ==
--- NOTE | 2021-12-18 06:00 | DI.RAD_ITS ---
Exam(s) XR PAIN CLINIC CERVICAL SP 2V EXAM: XR PAIN CLINIC CERVICAL SP 2V CLINICAL HISTORY: Dx: Cervical Radiculopathy. TECHNIQUE: Fluoroscopy was provided for the referring physician for guidance with performing pain cl inic injection procedure. COMPARISON: No exams were available for comparison FINDINGS: Please see procedure note for details. Fluoro time: 27.3 seconds RADIATION DOSE DELIVERED: Ka,r=2.78 mGy
[2021-12-18 13:49] VITALS: BP 129/69; PULSE 71; RESP 20; TEMP 37.1; O2SAT 98
[2021-12-18 14:06] LABS: INR 1.1 (0.9-1.1); Prothrombin Time 11.4 sec (9.3-11.0)
--- NOTE | 2021-12-18 14:37 | PDOC.PAIN ---
Pain Clinic Procedure Note Procedure Note Procedure Note: Cervical Epidural Steroid Injection Artem Pedraza has been referred to the [facility] for interlaminar cervical epidural steroid injection. COMMENTS: He has had many CESIs in the past. He obtains decreased pain and increased function for 6+ months from this procedure. Pre-procedure pain VAS 7/10. Dx: Cervical radiculopathy Patient was interviewed and the medical record reviewed. There were no medical, pharmacologic, radiographic or other structural contraindications to attempting fluoroscopically guided epidural steroid injection. Risks and expected side effects as well as potential benefit of the procedure were reviewed and voiced concerns addressed. The printed consent form was signed and witnessed. Standard time-out procedure was performed. The patient was placed in the prone position on the fluoroscopy table and automated blood pressure cuff and pulse oximeter applied. The skin entry point for entering the epidural space by a midline C7-T1 interlaminar approach was identified under fluoroscopy and marked. Following thorough Chlorhexadine preparation of the skin and draping and 1% lidocaine infiltration of the skin entry point and subcutaneous tissues, an 18 gauge Tuohy needle was placed under fluoroscopic guidance and with loss of resistance technique into the epidural space. Upon needle placement and loss of resistance there were no paresthesiae or return of blood or CSF through the needle. 1ml of Omnipaque 240 were injected with clear epidural spread in the A/P, oblique views. 15mg of preservative-free Dexamethasone with 1ml sterile normal saline were injected through the needle with no unusual discomfort expressed. The needle was removed without difficulty. A bandage was placed. Vital signs were stable throughout the procedure and were as recorded in the docflowsheet by the nursing staff. If given, dosages of intravenous drugs for anxiolysis and analgesia were documented in MAR. Follow up plans and appointments were discussed. Post procedure instruction was given as documented in nursing documentation and having met discharge criteria and was discharged from the [facility]. COMMENTS: Post-procedure pain VAS: 2/10. Murali Wagoner DO, MPH [facility]-Pain Management [facility]-Center for Pain Management CC: Guerita Vásquez
[2021-12-18] MEDS: Dexamethasone Sod. Phos./Pres-Free 10 MG/ML VIAL IJ (14:47)
[2021-12-18] MEDS: Omnipaque 240 MG/ML 50 ML BTL IJ (14:47)
[2021-12-18 14:48] VITALS: BP 154/68; PULSE 71; RESP 19; O2SAT 99
== END 2021-12-18 13:20 | disposition home or self-care (01) ==
LOC: PC 13:20
PROVIDERS: PCP Family Medicine; Visit Provider Preventive Medicine Occupational Medicine
DX: M54.12 Radiculopathy, cervical region (principal)
CPT/HCPCS: 62321; 72040; 85610; Q9967

== ENCOUNTER 2021-12-26 15:53 | Outpatient (REF) | payer BC, SELFPAY ==
[2021-12-26 13:06] LABS: INR 1.7 (0.9-1.1); Prothrombin Time 16.7 sec (9.3-11.0)
== END 2021-12-26 15:54 | disposition home or self-care (01) ==
LOC: NCHCN 15:53
PROVIDERS: PCP Family Medicine; Visit Provider Nurse Practitioner Family
DX: Z79.01 Long term (current) use of anticoagulants (principal); I35.8 Other nonrheumatic aortic valve disorders
CPT/HCPCS: 85610

== ENCOUNTER 2022-01-07 08:20 | Outpatient (CLI) | payer BC, SELFPAY ==
--- NOTE | 2022-01-07 08:20 | RT.EKG_ITS ---
APPROVED REPORT Exam: Resting ECG Reason for Exam: AVR Patient Location: O HR:56 bpm ECG Measurements Heart Rate 56 AXIS CA 285 P 93 QRSd 145 QRS -23 QT 435 T 109 QTc 420 Conclusion Sinus rhythm...normal P axis, V-rate 50- 99 Prolonged CA interval...CA >220, V-rate 50- 90 Left atrial enlargement...P, P'>60mS, <-0.15mV V1 Left bundle branch block...QRSd>120, broad/notched R
== END 2022-01-07 08:21 | disposition home or self-care (01) ==
LOC: DI.CARD 08:22
PROVIDERS: PCP Family Medicine; Visit Provider Internal Medicine Cardiovascular Disease
DX: I10 Essential (primary) hypertension (principal); I35.9 Nonrheumatic aortic valve disorder, unspecified; R94.31 Abnormal electrocardiogram [ECG] [EKG]; I44.7 Left bundle-branch block, unspecified
CPT/HCPCS: 93010

== ENCOUNTER 2022-05-21 09:02 | Outpatient (CLI) | payer BC, SELFPAY ==
[2022-05-21 09:30] VITALS: BP 148/71; PULSE 56; RESP 20; TEMP 37.2; O2SAT 97
[2022-05-21 09:38] LABS: INR 1.2 (0.9-1.1); Prothrombin Time 11.6 sec (9.3-11.0)
[2022-05-21 10:20] VITALS: BP 123/70; PULSE 69; RESP 19; O2SAT 99
--- NOTE | 2022-05-21 10:23 | DI.RAD_ITS ---
Exam(s) XR PAIN CLINIC CERVICAL SP 2V EXAM: XR PAIN CLINIC CERVICAL SP 2V CLINICAL HISTORY: Dx: Cervical Radiculopathy TECHNIQUE: 2D and realtime digital imaging was performed. Radiologist not present. CONTRAST MATERIAL: None. COMPARISON: No exams were available for comparison FINDINGS: Fluoroscopy was provided for pain management therapy. Please refer to procedure report or details. Cumulative dose: Ka,r=2.15 mGy IMPRESSION: RADIATION DOSE DELIVERED:
--- NOTE | 2022-05-21 10:24 | PDOC.PAIN_ITS ---
Date of service: 05/21/22 Time of Service: 10:28 Pain Clinic Procedure Note Procedure Note Procedure Note: Cervical Epidural Steroid Injection Artem Pedraza has been referred to the [facility] for cervical epidural steroid injection. COMMENTS: He has had this procedure many times in the past and gets 4-5 months of relief. INR was 1.2 today. Dx: Cervical radiculopathy Pre-procedure pain VAS was 4/10 Milo was interviewed and the medical record reviewed. There were no medical, pharmacologic, radiographic or other structural contraindications to attempting fluoroscopically guided epidural steroid injection. Risks and expected side effects as well as potential benefit of the procedure were reviewed with Milo , and Milo voiced concerns addressed. The printed consent form was signed and witnessed. Standard time-out procedure was performed. The patient was placed in the prone position on the fluoroscopy table and automated blood pressure cuff and pulse oximeter applied. The skin entry point for entering the epidural space by a midline C7-T1 interlaminar approach was identified under fluoroscopy and marked. Following thorough Chlorhexadine preparation of the skin and draping and 1% lidocaine infiltration of the skin entry point and subcutaneous tissues, an 18 gauge Tuohy needle was placed under fluoroscopic guidance and with loss of resistance technique into the C7-T1 epidural space. Upon needle placement and loss of resistance there were no paresthesiae or return of blood or CSF through the needle. 1 cc of Omnipaque 240 was injected with clear epidural spread in the A/P, lateral and oblique views. 10 mg of preservative free Dexomethasone was injected with no unusual discomfort expressed by Milo. This was flushed with 1 cc of normal saline. Milo 's vital signs were stable throughout the procedure and were as recorded in the docflowsheet by the nursing staff. Follow up plans and appointments were discussed with the Milo. Post procedure instruction was given as documented in nursing documentation and having met discharge criteria, Milo was discharged from the Pain Management Center. COMMENTS: Post-procedure pain VAS was 2/10. Murali Wagoner DO, MPH [facility]-Pain Management [facility]-Center for Pain Management CC: Guerita Vásquez
[2022-05-21] MEDS: Dexamethasone Sod. Phos./Pres-Free 10 MG/ML VIAL IJ (10:28)
== END 2022-05-21 09:03 | disposition home or self-care (01) ==
LOC: PC 09:03
PROVIDERS: PCP Family Medicine; Visit Provider Preventive Medicine Occupational Medicine
DX: M54.12 Radiculopathy, cervical region (principal)
CPT/HCPCS: 36415; 62321; 72040; 85610

== ENCOUNTER 2022-06-06 06:32 | Day surgery (SDC) | payer BC, SELFPAY ==
--- NOTE | 2022-06-05 20:10 | W.PREOPHP ---
Assessment and Plan Assessment and plan (1) Inguinal hernia: Status: Acute Assessment and plan: Hernia repair today History of Present Illness History of Present Illness Chief Complaint: Right inguinal hernia Narrative: Mr. Pedraza is a 66-year-old male comes in with complaints of a right groin bulge that is painful with activity and exercise.? Noticed it approximately 3 months ago while gardening.? It first started this pain, but then he noticed the bulge, which has increased in size over the past few weeks.? He says the discomfort is worse with movement, particularly walking.? He has some relief when he lays down flat.?? PFSH All Active Problems Inguinal hernia (Acute) Lumbar stenosis without neurogenic claudication (Chronic) Cervical radicular pain (Chronic) Aortic valve disorder (Acute) [facility] Mechanical aortic valve replacement, 1991 Dr. 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 Dr Brown, [facility] 04/28/2017 epidural steroid w/catheter injection procedure Cervical spinal cord compression (Acute 05/14/15) Causing Central Spinal Stenosis - MRI 05/09/2015 Neck pain (Acute 05/01/15) Neuropathic pain (Acute 08/11/16) intermittent, independent of joint pains, both legs, palms, without weakness, drops things Numbness and tingling (Acute 05/01/15) Episodic Both arms, left foot and left leg Osteoarthritis involving multiple 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 sides of body (Acute 01/18/16) neck, L knee, left elbow, left wrist, ? others Primary osteoarthritis of left knee (Acute 01/18/16) Dr Pickett 12/2015, pos x-ray Urticaria (Acute) Dermatofibroma of right lower leg (Acute) Asthma (Chronic) Degenerative arthritis (Chronic) Spinal stenosis (Chronic) Lumbosacral radiculopathy (Acute) Sensorineural hearing loss (SNHL) of left ear (Acute) Conductive hearing loss in right ear (Acute) Thrush (Acute) Right inguinal hernia (Acute) Impacted cerumen, bilateral (Acute) Impacted cerumen, bilateral (Acute) Medical History Ceruminosis Disorder of tympanic membrane of left ear Family history of glaucoma Otalgia, left ear Surgical History AVR (~1973) [facility] [place], Redo Aortic Valve #23 [facility]; initially childhood rheumatic AVR (10/18/91) [facility] [place], Redo Aortic Valve #23 [facility]; initially childhood rheumatic S/P ear surgery right; several surgeries Spinal Fusion (06/18/15) C5-6 diskectomy and fusion, [facility] [place] Dr Michel neurosurg & L4-5 spinal fusion 2018 Family History Father Essential hypertension Heart disease Social History Smoking/Tobacco Use Status: Never Smoking risk assessment performed?: Yes Alcohol Intake: current Alcohol Intake frequency: holidays/special occasions only Drug use: Daily Substance use type: marijuana What type of physical activity do you participate in: walking and resistance training Frequency: 3-4 times per week Do you feel safe at home: Yes Do you feel safe in your relationship?: Yes Meds Allergies and Home Medications Allergies Allergy/AdvReac Type Severity Reaction Status Date / Time nut - unspecified Allergy Intermediate Skin Rash Verified 06/06/22 06:35 tree and shrub pollen Allergy Mild Verified 06/06/22 06:35 cat dander Allergy Unknown Verified 06/06/22 06:35 mold Allergy Unknown Verified 06/06/22 06:35 pollen extracts Allergy Unknown Verified 06/06/22 06:35 dirt Allergy Mild Uncoded 06/06/22 06:35 Home Medications Medication Instructions Recorded Confirmed Type amoxicillin 500 mg tablet 2 g PO ONCE #4 tab-caps 04/28/16 06/04/22 History Medical Marijuana 1 ea inhalation PRN PRN 12/12/16 06/06/22 History pravastatin 20 mg tablet 20 mg PO DAILY #90 tabs 04/06/17 06/06/22 Rx warfarin 5 mg tablet (Coumadin) 0 mg PO as directed #150 tab-caps 04/06/17 06/04/22 History budesonide-formoterol HFA 160 2 puff inhalation BID ##3 06/04/17 06/06/22 Rx mcg-4.5 mcg/actuation aerosol inhaler (Symbicort) lisinopril 20 mg tablet 20 mg PO BID #180 tab-caps 06/04/17 06/06/22 Rx montelukast 10 mg tablet 10 mg PO DAILY #90 tab-caps 06/04/17 06/06/22 Rx (Singulair) cetirizine 10 mg capsule (Zyrtec) 10 mg PO DAILY 09/22/18 06/06/22 History tamsulosin 0.4 mg capsule (Flomax) 0.8 mg PO DAILY #180 tab-caps 12/24/21 06/06/22 Rx Exam Const General: cooperative, healthy appearing and comfortable Orientation: awake and oriented x3 HENMT Head: normal to inspection Eyes General: appearance normal, both eyes and all related structures Conjunctivae: conjunctivae normal Sclera: sclerae normal Resp Effort & Inspection: normal respiratory effort and able to speak in complete sentences Auscultation: clear to auscultation bilaterally Cardio Jugular venous pressure: no JVD Rate: regular rate Heart Sounds: S1 normal and S2 normal GI Inspection: non-distended Palpation: soft, no guarding, hernia (Right inguinal) and nontender Auscultation: normal bowel sounds Skin General skin exam: normal turgor Neuro General: patient alert, patient awake and patient oriented x3 Cognition: normal cognition Extrem Right lower extremity: no edema Left lower extremity: no edema
--- NOTE | 2022-06-05 20:11 | PDOC.DSDIS_ITS ---
Date of service: 06/06/22 Time of Service: 09:01 Discharge Plan Disposition Patient Disposition: Home Condition: Good Discharge Details Reason For Visit: (R) INGUINAL HERNIA Attending Provider: Collins Bradshaw Primary Care Provider: Guerita Vásquez Home Meds and New Rx's Prescriptions: New tramadol 50 mg tablet 50 mg PO Q8H PRN (Reason: pain) Qty: 9 0RF Rx Instructions: Take 1 tablet by mouth up to every 8 hours if needed for severe pain. Do not drive while using this medication. Continued tamsulosin [Flomax] 0.4 mg capsule 0.8 mg PO DAILY Qty: 180 3RF amoxicillin 500 MG tablet 2 g PO ONCE Qty: 4 Rx Instructions: prior to dental procedures medical marijuana 1 ea inhalation PRN PRN warfarin [Coumadin] 5 MG tablet 0 mg PO as directed Qty: 150 Hold Instructions: Resume on 06/07/22. Rx Instructions: 7.5 mg MWFSa and 5 mg TThSu, or as directed to maintain INR between 2.0-3.0; also ASA 81 pravastatin 20 MG tablet 20 mg PO DAILY Qty: 90 3RF lisinopril 20 MG tablet 20 mg PO BID Qty: 180 3RF montelukast [Singulair] 10 MG tablet 10 mg PO DAILY Qty: 90 3RF budesonide-formoterol [Symbicort] 10.2 GM HFA aerosol inhaler 2 puff Inhalation BID Qty: 3 3RF Zyrtec 10 mg Capsule 10 mg PO DAILY Discharge Instructions Instructions: Inguinal Hernia Repair (GEN) Additional Instructions: 1. Resume all of your medications, including your warfarin, which can be restarted today. 2. Okay to use tylenol and ibuprofen over the counter as needed. Use tramadol as needed for severe pain. 3. Heating pads and cold packs are fine to use for your comofort. 4. Leave bandage in place for 24 hours, then remove. 5. Shower with warm soapy water. Pat dry. Use a bandaid if needed to protect your clothing. 6. No soaking or tub baths until I see you in the office. 7. No heavy lifting until I see you in the office. 8.Call the office (or go directly to the emergency room after hours) if you notice any of the following: Develop chills (warm to touch), or if you have a thermometer and your temperature is above 101 Difficulty breathing or difficultly swallowing Persistent vomiting Any bleeding ? exceeding one tablespoon 6. Call your physician if the site where your intravenous was started becomes red, swollen, painful, and warm to touch. Referrals: Collins Bradshaw MD [ [facility] ST[facility]FF [facility]YSICIAN] - Activity:: no heavy lifting Remove Dressings/Wound Care:: 24 hours Shower/Bathe:: 24 hours Diet:: As Tolerated Discharge Orders Discharge Orders: Discharge Order (Routine); Ordered 06/05/22 Ordered By: Collins Bradshaw DS: Diagnosis Discharge Diagnosis (1) Inguinal hernia: Status: Acute Asessment and Plan: Repair to right sided indirect inguinal hernia today, with mesh plug and patch. You did great. Follow the attached discharge instructions, and we look forward to seeing you in the office for routine postoperative visit.
--- NOTE | 2022-06-05 20:15 | ROE_ITS ---
Date of service: 06/06/22 Time of Service: 09:04 Operative Note Operative Note DATE OF PROCEDURE: 06/06/22 PRE-OP DIAGNOSIS: Right inguinal hernia POST-OP DIAGNOSIS: same Right-sided indirect inguinal hernia PROCEDURE: Right ingiuanl herniorraphy with mesh SURGEON: Collins Bradshaw EMAIL MARKETING EXECUTIVE: [place] Christy ANESTHESIA TYPE: Local By Surgeon, General LMA/ETT and Other (TAP block) Refer to Anesthesia Record ESTIMATED BLOOD LOSS: 20 COMPLICATIONS: None Patient was transported to: PACU Patient's condition: stable Implants: Bard large mesh patch and plug Indications: Artem is a 66-year-old male with right-sided inguinal hernia. It is grown in size, and become more painful over the past several weeks. Findings: Indirect inguinal hernia Procedure Description: I began by confirming the correct site with the patient. Next, after the induction of general anesthesia, the anesthesia specialist provided a right- sided tap block with ultrasound guidance.. Surgical site was then prepped and draped in the usual fashion. I began by making an oblique incision over the right region. I dissected down through the skin to the deep fascia. Next, I incised the fascia along the length of the inguinal canal to the external ring. I then carefully identified the ilioinguinal nerve it was adherent to the hernia sac. I was worried that dissection of this may cause longstanding groin pain therefore, I sharply divided it.. Once this was complete, I bluntly dissected the shelving edge of the inguinal ligament down towards the pubic tubercle. Here, I encircled all cord structures with a [place] drain. Next, I began dissecting the specific cord structures. Great care was taken to spare the vas deferens and the blood supply to the testicle. Next, I isolated the hernia sac from the other inguinal structures. I reduced it back to its normal anatomic position. I then used a large mesh plug to obliterate the defect at the internal ring. I fixed in place with interrupted Prolene stitches. Next, I buttressed the posterior floor of the inguinal canal with a large mesh patch. I started by fixing it to the pubic tubercle. Next, I used Prolene sutures to affix it to the shelving edge of the inguinal ligament and the conjoined tendon. Laterally I tacked it to the transversalis fascia and reconstructed an internal ring without any strain on the cord structures. Once this was complete, I irrigated the surgical field. It appeared hemostatic. I then closed the anterior portion of the fascia to reconstruct the front wall of the inguinal canal. I did this with interrupted Vicryl stitches. Once again, I irrigated the surgical field and inspected for hemostasis. Finally, I approximated the superficial fascia and the deep layers of the skin with absorbable suture. Skin was closed with running subcuticular stitches. Bandages were applied, the patient was awakened and transferred to the recovery unit.
[2022-06-06] VITALS (10 sets, daily range): BP systolic 113–156; BP diastolic 40–107; PULSE 54–65; RESP 9–18; TEMP 36.4–37.1; O2SAT 97–100; BMI 21.0
--- NOTE | 2022-06-06 07:04 | W.ANESPRE ---
General Info Date of Service Date Performed: 06/06/22 Height: 5 ft 10 in Weight: 66.678 kg Body Mass Index (BMI): 21.0 Surgical Procedure: Operation Date: 06/06/22 07:40 Proposed Procedure Side Surgeon p Herniorrhaphy Inguinal w/Mesh Right Collins Bradshaw MD Meds Allergies and Home Medications Allergies Allergy/AdvReac Type Severity Reaction Status Date / Time nut - unspecified Allergy Intermediate Skin Rash Verified 06/06/22 06:35 tree and shrub pollen Allergy Mild Verified 06/06/22 06:35 cat dander Allergy Unknown Verified 06/06/22 06:35 mold Allergy Unknown Verified 06/06/22 06:35 pollen extracts Allergy Unknown Verified 06/06/22 06:35 dirt Allergy Mild Uncoded 06/06/22 06:35 Home Medication Medication Instructions Recorded amoxicillin 500 mg tablet 2 g PO ONCE #4 tab-caps 04/28/16 Medical Marijuana 1 ea inhalation PRN PRN 12/12/16 pravastatin 20 mg tablet 20 mg PO DAILY #90 tabs 04/06/17 warfarin 5 mg tablet (Coumadin) 0 mg PO as directed #150 tab-caps 04/06/17 budesonide-formoterol HFA 160 2 puff inhalation BID ##3 06/04/17 mcg-4.5 mcg/actuation aerosol inhaler (Symbicort) lisinopril 20 mg tablet 20 mg PO BID #180 tab-caps 06/04/17 montelukast 10 mg tablet 10 mg PO DAILY #90 tab-caps 06/04/17 (Singulair) cetirizine 10 mg capsule (Zyrtec) 10 mg PO DAILY 09/22/18 tamsulosin 0.4 mg capsule (Flomax) 0.8 mg PO DAILY #180 tab-caps 12/24/21 Current Visit Medications: Current Medications Generic Name Dose Route Start Last Admin Trade Name Freq PRN Reason Stop Dose Admin Acetaminophen 1,000 mg 06/06/22 06:00 Acetaminophen 500 Mg Tab PO 07/05/22 23:59 PREOP EDUARDA Celecoxib 200 mg 06/06/22 06:00 Celecoxib 200 Mg Cap PO 07/05/22 23:59 PREOP EDUARDA Gabapentin 600 mg 06/06/22 06:00 Gabapentin 300 Mg Cap PO 07/05/22 23:59 PREOP EDUARDA Ringer's Solution 1,000 mls @ 80 mls/hr 06/06/22 06:00 IV 07/05/22 23:59 INFUSION EDUARDA Cefazolin Sodium/Dextrose 2 gm in 50 mls @ 100 mls/hr 06/06/22 06:00 Ancef Duplex IVPB 07/05/22 23:59 PREOP EDUARDA IV Miscellaneous Supplies 1 each 06/06/22 06:00 Iv Access IV 07/05/22 23:59 DIRECTED EDUARDA Morphine Sulfate 2 mg 06/05/22 20:18 Morphine 4 Mg/Ml Syr IVP Q1H PRN PRN Sodium Chloride 0 ml 06/06/22 06:00 Normal Saline Flush 10 Ml Syr IV 07/05/22 23:59 PRN PRN Sodium Chloride 0 ml 06/06/22 06:00 Normal Saline 10 Ml Vial IJ 07/05/22 23:59 DIRECTED PRN Sterile Water 0 ml 06/06/22 06:00 Water,Injection,Sterile 10 Ml Vial IJ 07/05/22 23:59 DIRECTED PRN Tramadol HCl 50 mg 06/05/22 20:18 Tramadol 50 Mg Tab PO Q6H PRN PRN Pain PFSH Active Problems Active Problems: Problem Status Onset Code Inguinal hernia K40.90 Lumbar stenosis without neurogenic claudication M48.061 Cervical radicular pain M54.12 Aortic valve disorder I35.9 Benign prostatic hyperplasia 09/29/13 N40.0 Cervical radiculopathy at C7 03/03/16 M54.12 Decreased sensation 05/01/15 R20.8 Elevated antinuclear antibody (BROOKS) level 07/30/15 R76.8 Gross hematuria 09/19/16 R31.0 Hyperlipidemia E78.5 Hypertension 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.01 Low back pain radiating to both legs 07/30/16 M54.5 Lower urinary tract symptoms (LUTS) 07/23/15 R39.9 Lumbar stenosis with neurogenic claudication M48.062 Cervical spinal cord compression 05/14/15 G95.20 Neck pain 05/01/15 M54.2 Neuropathic pain 08/11/16 M79.2 Numbness and tingling 05/01/15 R20.0, R20.2 Osteoarthritis involving multiple 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 sides of body 01/18/16 M15.9 Primary osteoarthritis of left knee 01/18/16 M17.12 Urticaria L50.9 Dermatofibroma of right lower leg D23.71 Asthma J45.909 Degenerative arthritis M19.90 Spinal stenosis M48.00 Lumbosacral radiculopathy M54.17 Sensorineural hearing loss (SNHL) of left ear H90.5 Conductive hearing loss in right ear H90.11 Thrush B37.0 Right inguinal hernia K40.90 Impacted cerumen, bilateral H61.23 Impacted cerumen, bilateral H61.23 Medical History Medical History Ceruminosis Disorder of tympanic membrane of left ear Family history of glaucoma Otalgia, left ear Medical History Comments:: Raman medical daily Surgical History [place] [facility] [place] A[place] Valve #23 [facility]; initially childhood rheumatic AVR (10/18/91) [facility] [place] Red[place] A[place] Valve #23 [facility]; initially childhood rheumatic S/P ear surgery right; several surgeries Spinal Fusion (06/18/15) C5-6 diskectomy and fusion, [facility] [place] Michel [place] & L4-5 spinal fusion 2018 Tobacco Smoking/Tobacco Use Status: Never Alcohol Alcohol Intake: current Alcohol intake frequency: holidays/special occasions only Substance Use Substance use: Daily Substance use type: marijuana Vital Signs and Lab Results Lab Results Blood Type / Crossmatch: No Data to Display Complete Blood Count: No Data to Display Complete Metabolic Panel: No Data to Display Liver Function Panel: No Data to Display Coagulation Panel: INR International Normalized Ratio 1.2 (0.9-1.1) H 05/21/22 09:20 Prothrombin Time 11.6 sec (9.3-11.0) H 05/21/22 09:20 Cardiac Panel: No Data to Display Arterial Blood Gas: No Data to Display Venous Blood Gas: No Data to Display Pancreas Panel: No Data to Display Thyroid Panel: No Data to Display Infectious Disease: No Data to Display Blood Cultures: No Data to Display Toxicology Panel: No Data to Display Anesthesia Assessment and Plan Anesthesia History Personal History: No History of Anesthesia Complications Family History: No Family History of Anesthesia Complications Exercise Tolerance Exercise Tolerance: Metabolic Equivalents>4 Pertinent Negatives Pertinent Negatives: No Symptoms of GERD Cardiac & Pulmonary Exam Cardiac Exam: Normal S1/S2 Heart Sounds Pulmonary Exam: Clear Bilateral Breath Sounds Implantable Cardiac Device Does patient have a Pacemaker or an ICD?: No Airway Exam Known Difficult Airway: No Mallampati Class: 1 Mouth Opening: Normal (> 3cm) Thyromental Distance: Greater than 3 cm Neck Range of Motion: Full ROM Neck Circumference: Normal Teeth Condition: Normal Dentition ASA Classification ASA Score: ASA 2 Emergency Case?: No NPO Status NPO Status: NPO Clears >2 hours, Solids >8 hours Anesthesia Plan Resuscitation Status: Full Code Anesthesia Technique: Primary Nerve Block (Tap right) Airway Planned: LMA Pain Management: Surgeon and patient request nerve block Monitors Used: Standard Monitors
[2022-06-06] MEDS: Celecoxib 200 MG CAP PO (07:13)
[2022-06-06] MEDS: Gabapentin 300 MG CAP 600 MG PO (07:13)
[2022-06-06] MEDS: Acetaminophen 500 MG TAB 1000 MG PO (07:14)
[2022-06-06] MEDS: Lactated Ringers 1,000 ML 80 ML IV (07:16)
--- NOTE | 2022-06-06 07:41 | W.ANESNERVE ---
Nerve Block Single Injection Procedure Date and Time Date Performed: 06/06/22 Procedure Start: 08:06 Location Where Procedure Performed Procedure Location: Operating Room Procedure Stop: 08:28 Reason Performed: Postoperative Analgesia Requesting Provider: Collins Bradshaw Timeout Performed Timeout Performed: Yes Monitoring Used ECG, Blood Pressure, SpO2, ETCO2 and See EMR for corresponding vital signs Sterility Sterility: Hand Hygiene, Surgical Cap, Surgical Mask, Sterile Gloves and Chlorhexidine Sedation Given During Procedure Sedation Given (Indicate Dose Given): Other: Medication/Route/Dose:: bupivicaine 0.25 right tap Patient Mental Status Patient Mental Status: Performed under general anesthesia Nerve Block 1st Nerve Block: Laterality: Right Block Type: TAP Unilateral (right) Ultrasound Image Saved?: Yes Needle / Catheter Used: 100mm SonoPlex II Local Anesthetic Bolus (Indicate Dose Given): Bupivacaine 0.25% Dose:: 30 ml Additives (Indicate Dose Given): None Ultrasound: Sterile probe cover and gel used Nerve Stimulator: Not Used Paresthesia: None Procedure Tolerated: No Complications Procedure Outcome: Successful Performed By: Mode Gomez
[2022-06-06 07:44] LABS: INR 1.2 (0.9-1.1); Prothrombin Time 11.8 sec (9.3-11.0)
[2022-06-06] MEDS: ceFAZolin 2 GM/50 ML BAG IVPB (08:00)
[2022-06-06] MEDS: Bupivacaine 0.5% Pres-Free W/EPI 30 ML VIAL (09:08)
[2022-06-06] MEDS: fentaNYL 100 MCG/2 ML VIAL IVP ×3 (09:54→10:17)
--- NOTE | 2022-06-06 11:36 | W.ANESPOSTOP ---
Postoperative Evaluation Date, Time and Location Date Performed: 06/06/22 Time Performed: 11:36 Patient Location: Day Surgery Unit Vital Signs Most Recent Imported Vital Signs: Most Recent Vital Signs Temp Pulse Resp BP Pulse Ox 37.1 C 57 L 16 150/69 H 98 06/06/22 11:15 06/06/22 11:15 06/06/22 11:15 06/06/22 11:15 06/06/22 11:15 Pain Score Most Recent Pain Score: Most Recent Pain Score Pain Level 3 06/06/22 11:15 Assessment Mental Status: Awake (Alert & Oriented to Patient Baseline) Airway and Respiratory Function: Patent airway with normal (patient baseline) respiratory exam Cardiovascular Function: Hemodynamically Stable Hydration Status: Adequately Hydrated Nausea & Vomiting: No Nausea or Vomiting Pain: Pain is tolerable per patient Peripheral Nerve Block: Regional nerve block not resolved at time of post operative discharge
== END 2022-06-06 11:38 | disposition home or self-care (01) ==
PROVIDERS: PCP Family Medicine; Visit Provider Surgery
PROC: (CPT 49505; principal; 2022-06-06 07:30)
DX: K40.90 Unilateral inguinal hernia, without obstruction or gangrene, not specified as recurrent (principal); I10 Essential (primary) hypertension; E78.5 Hyperlipidemia, unspecified; Z79.01 Long term (current) use of anticoagulants
CPT/HCPCS: 49505; 36415; 76942; 85610; C1781; J0690; J2405; J2704; J3010

== ENCOUNTER 2022-11-26 02:02 | Outpatient (CLI) | payer BC, SELFPAY ==
--- NOTE | 2022-11-26 15:03 | DI.US_ITS ---
APPROVED REPORT EXAM: Comprehensive 2D, Doppler, and color-flow Echocardiogram Patient Location: Out-Patient [facility] Opener Verifier Packer: Ashley Escalona RDCS (AE) Indications: Mechanical Aortic valve replacement Other Information Study Quality: Adequate Conclusion There is mild concentric left ventricular hypertrophy. Left ventricular chamber size is normal. Eje ction fraction is 55%. Wall motion is normal Normal right ventricular size and systolic function Left atrium is mildly dilated. Right atrial size is normal There is a mechanical aortic valve replacement. Mean gradient is 14 mmHg Thickened mitral leaflets, trace mitral regurgitation Normal tricuspid valve with trace to mild regurgitation. Estimated right ventricular systolic pressu re is 21 mmHg Dilated ascending aorta measuring 4.27 cm Wall motion Left Ventricle The left ventricle is normal size. The left ventricular systolic function is normal. The left ventric ular ejection fraction is within the normal range. Mild concentric left ventricular hypertrophy. Ther e is normal LV segmental wall motion. There is no ventricular septal defect visualized. LVEF is 55%. Right Ventricle Right ventricle is grossly normal in size. Right ventricular systolic function is grossly normal. Atria Left atrium is mildly dilated. The right atrium size is normal. The interatrial septum is intact with no evidence for an atrial septal defect. Aortic Valve Mechanical aortic valve. Peak aortic valve gradient is 27.0_mmHg. Highest mean aortic valve gradient is 14.8_mmHg. Calculated BRODY by the continuity equation is 1.44_cm2. Mitral Valve Thickened mitral leaflets No evidence of mitral valve stenosis. Trace mitral regurgitation. Tricuspid Valve The tricuspid valve is normal in structure. There is no tricuspid valve stenosis. Trace to mild tricu spid regurgitation. Pulmonic Valve The pulmonary valve is normal in structure. There is no pulmonic valvular stenosis. There is no pulmo marianne valvular regurgitation. Great Vessels The aortic root is normal in size. The ascending aorta is moderately dilated. Aortic arch is not well visualized. IVC is normal in size and collapses >50% with inspiration. Pericardium There is no pericardial effusion. 2D Dimensions IVSD d PLAX 1.38 cm M: 0.6-1.2 LV Vol A2C d MOD 138.4 mL LVPW d PLAX 1.23 cm M: 0.6 - 1.2 LV Vol A4C d MOD 104.4 mL LVID d PLAX 4.49 cm M: 4.2 - 5.8 LA vol/ BSA A2C s A-L 47.4 mL/m2 LVDs 3.15 cm M: 2.5 - 4.0 LA vol/ BSA A4C s A-L 34.2 mL/m2 Ao Root d 3.62 cm M: 3.1 - 3.7 LA Vol/ BSA Biplane s A-L 42.2 mL/m2 Ao Asc Diam d 4.27 cm M: 2.6 - 3.4 LA Area A4C s MOD 19.16 cm2 LV EF Teichholz 56.7 % LA Area A2C s MOD 23.65 cm2 LVEF (Sparrow's) 54.98 % M: 52 - 72 LV EF A4C MOD 55.0 % LV Volume 95.95 mL M: 62 - 150 LV EF A2C MOD 55.5 % LV Volume Index 52.43 mL/m2 M: 34 - 74 LV EF Biplane MOD 55.0 % LV Vol Biplane MOD 124.0 mL SV 68.17 mL FS 29.50 % SV Index 37.33 mL/m2 LV Diastology E/A Ratio 0.8 MV E Vmax 1.05 (0.4-1.3 m/s) MV A Vmax 1.30 (0.4-1.3 m/s) MV E/A Ratio 0.80 Aortic Valve LVOT Area 3.14 cm2 AoV Area Vmax 1.44 cm2 LVOT Vmax 1.19 m/s AoV Area/ BSA (Vmax) 0.79 cm2/m2 LVOT Mean Abhay. 0.76 m/s BRODY Mean Abhay. 1.33 cm2 LVOT Peak Grad 5.6 mmHg BRODY Mean Abhay. Index 0.73 cm2/m2 LVOT Mean Grad 2.7 mmHg LVOT VTI 0.260 m LVOT Diam s 2.00 cm AoV Vmax 2.60 m/s Velocity Ratio 0.46 AoV Mean Abhay. 1.80 m/s AoV Peak Grad 27.0 mmHg LVOT SV 81.78 mL AoV Mean Grad 14.8 mmHg AoV VTI 0.597 m AoV Area VTI 1.37 cm2 AoV Area/ BSA (VTI) 0.75 cm/m2 Mitral Valve MV DT 431 (160-240 msec) MV PHT 125 msec MV Area PHT 1.76 cm2 MV VTI 0.477 m MV Area VTI 1.71 (4.0-6.0 cm2) Pulmonary Valve PV Vmax 1.16 (0.5-1.5 m/s) RVOT Peak Gr. 4.06 mmHg PV Peak Grad 5.4 mmHg RVOT Mean Gr. 2.10 mmHg PV Mean Grad 2.9 mmHg RVOT VTI 0.208 m PV VTI 0.271 m RVOT Vmax 1.01 m/s Tricuspid Valve TR Peak Grad 17.8 mmHg TR Vmax 2.11 m/s RA Pressure 3.00 mmHg RVSP (TR) 20.9 mmHg
== END 2022-11-26 02:22 ==
LOC: DI 02:03
PROVIDERS: PCP Family Medicine; Visit Provider Internal Medicine Cardiovascular Disease
DX: I35.9 Nonrheumatic aortic valve disorder, unspecified (principal)
CPT/HCPCS: 93306

== ENCOUNTER 2023-01-08 08:30 | Outpatient (CLI) | payer BC, SELFPAY ==
[2023-01-08 08:37] VITALS: BP 133/63; PULSE 61; RESP 20; TEMP 36.7; O2SAT 98
[2023-01-08 09:01] LABS: INR 1.2 (0.9-1.1); Prothrombin Time 11.9 sec (9.3-11.0)
--- NOTE | 2023-01-08 09:32 | DI.RAD_ITS ---
Exam(s) XR PAIN CLINIC CERVICAL SP 2V EXAM: XR PAIN CLINIC CERVICAL SP 2V CLINICAL HISTORY: Dx: Cervical Radiculopathy. TECHNIQUE: Fluoroscopy was provided for the referring physician for guidance with performing pain cl inic injection procedure. COMPARISON: No exams were available for comparison FINDINGS: Please see procedure note for details. Fluoro time: 36.5 seconds RADIATION DOSE DELIVERED: Ka,r=5.73 mGy
[2023-01-08] MEDS: Dexamethasone Sod. Phos./Pres-Free 10 MG/ML VIAL IJ (09:33)
[2023-01-08] MEDS: Omnipaque 240 MG/ML 50 ML BTL IJ (09:33)
[2023-01-08 10:03] VITALS: BP 155/65; PULSE 66; RESP 20; O2SAT 99
--- NOTE | 2023-01-08 10:47 | PDOC.PAIN ---
Date of service: 01/08/23 Time of Service: 09:40 Pain Managment Procedure Note Procedure Note Procedure Note: Procedure Note Cervical Interlaminar Epidural Steroid Injection Date of Service: January 08, 2023 Patient:? Artem Pedraza? Provider:? Bry Wagoner DO, MPH Artem has been referred to the [facility] for cervical epidural steroid injection.? Pre-operative diagnosis: Cervical Radiculopathy Post-operative diagnosis: Same Pre-procedure pain: VAS= 8/10 Comments: He had >4 months of >50% pain relief with his last MEETA on 05/21/22. He had an INR of 1.2 this morning. Artem was interviewed and the medical record was reviewed.? There were no medical, pharmacologic, radiographic or other structural contraindications to attempting fluoroscopically guided cervical interlaminar epidural steroid injection.? Risks, potential side effects, indications, and potential benefits of the procedure were reviewed with Artem.? Questions and concerns were addressed.? After it was clear that the patient was fully informed about the procedure, the printed consent form was signed by the patient and myself.? Artem was placed in the prone position on the fluoroscopy table and automated blood pressure cuff as well as pulse oximeter was applied. A standard time-out procedure was performed. The skin entry point for entering the epidural space by a midline C7-T1 interlaminar approach was identified under fluoroscopy and marked.? The skin entry point was thoroughly cleaned with Chlorhexadine preparation and the skin was draped.? Next a mixture of 2 mls of 1% lidocaine was infiltrated into the area of the planned skin entry point and underlying subcutaneous tissues.? Next an 18 gauge Tuohy needle was placed under fluoroscopic guidance and with loss of resistance technique into the epidural space utilizing multiple AP and 55 degree contralateral fluoroscopic views.? Upon correct needle placement and loss of resistance, there were no paresthesia or return of blood or CSF through the needle. Next 1 mls of preservative-free Omnipaque 240 was injected with clear epidural spread in the A/P and oblique views. Next, a solution of 15 mg of preservative-free Dexamethasone was injected. This was followed with 1ml of preservative-free normal saline. No unusual discomfort was expressed by Artem. The needle was withdrawn without difficulty. (49 mls of Omnipaque and 5 mg of Dexamethasone was wasted) Artem was observed and was without hemodynamic, neurologic, or allergic reactions.? Fluoroscopic images were digitally archived. Artem's vital signs were stable throughout the procedure and were as recorded in the doc flowsheet by the nursing staff.? If given, dosages of intravenous drugs for anxiolysis and analgesia were documented in MAR. Follow up plans and appointments were discussed with Artem.? Post procedure instruction was given as documented in nursing documentation and having met discharge criteria, [facility]. A retrospective review of interlaminar cervical ESIs found that approximately two-thirds of patients with symptomatic cervical radiculopathy from disc herniation were able to avoid surgery for up to 1 year with treatment. Success rate was improved with earlier injection (< 100 days from diagnosis). Janett EL, Deirdre V, Art L, Yancy AN, Case EZEKIEL. Cervical epidural steroid injections for symptomatic disc herniations. J Spinal Disord Tech. 2006 September;19(3):183-6. ? COMMENTS: No apparent complications. Post-procedure pain: VAS= 2/10. Artem to contact [facility] as needed. If at least 50% improvement in pain and/or function for at least 3 months is achieved, this procedure can be repeated. I personally completed the entire procedure. BRY WAGONER DO, MPH ABPMR-subspecialty board certification in Pain Medicine [facility] [facility]
== END 2023-01-08 08:31 | disposition home or self-care (01) ==
LOC: PC 08:30
PROVIDERS: PCP Family Medicine; Visit Provider Preventive Medicine Occupational Medicine
DX: M54.12 Radiculopathy, cervical region (principal)
CPT/HCPCS: 62321; 72040; 85610; Q9967

== ENCOUNTER → 2023-05-06 01:57 | Outpatient (CLI) | payer BC, SELFPAY ==
--- NOTE | 2023-05-06 07:15 | DI.MRI_ITS ---
Exam(s) MR CERVICAL SPINE WO EXAM: MR CERVICAL SPINE WO CLINICAL HISTORY: Neck Pain,cervical radiculopathy c 7,m54.12 TECHNIQUE: Multiplanar multisequence MRI of the cervical spine was performed without intravenous con trast. COMPARISON: MR MR CERVICAL SPINE WO/W from 12/26/2019 FINDINGS: CERVICOMEDULLARY JUNCTION: Intact with no evidence of cerebellar tonsillar ectopia. No obvious abnor mality of the odontoid process. No evidence of Chiari 1 malformation. CERVICAL SPINAL CORD: There is no abnormal signal in the cervical spinal cord and no evidence of foca l cord atrophy nor focal cord swelling. OSSEOUS:Again noted is anterior fusion plate at C5-6 levels. No abnormal intraosseous signal nor dis citis signal. INDIVIDUAL LEVELS: C2-3: Normal disc height. There is central posterior subligamentous annular bulging, slightly more s o than previous with mild effacement of the thecal sac anteriorly but not contacting the cord. Centr al canal dimensions are within normal limits. No significant foraminal stenosis this level. C3-4: Preserved disc height. Relatively symmetrical mild annular bulging, similar to previous. No p rominent disc herniation. Central canal dimensions lower normal. There are moderate degenerative kody nges in left facet joint with moderate foraminal stenosis on the left side. Minimal degenerative mahmood ge in the right facet joints and no foraminal stenosis on the right side. C4-5: This is 1 level above the fusion. There is moderate disc height loss and anterior osteophytes, similar to previous. There is again noted broad based annular bulging and bilateral Luschka joint o steophytes at this level. There is again noted effacement of the anterior thecal sac and mild centra l spinal canal stenosis, similar to previous. There are only minimal degenerative changes in the fac et joints at this level. There is mild moderate bilateral foraminal stenosis at this level which is mostly related to the bilateral Luschka joint osteophytes. C5-6: This level is fused anteriorly. There is no remaining disc space. Central canal dimensions re main normal. There are minimal degenerative changes in the facet joints. There is mild bilateral fo raminal stenosis at this level. C6-7: There is moderate-advanced disc space narrowing again noted at this level. Bilateral Luschka j oint osteophytes evident. Mild degenerative changes in the right facet joint. Slightly more promine nt on the left side. Again noted is broad annular bulging and Luschka joint osteophytes. Central ca nal dimensions are lower normal. Mild bilateral foraminal stenosis again noted. C7-T1: No disc herniation nor central canal stenosis. Moderate left facet arthropathy. No right face t arthropathy. No foraminal stenosis on the right side. There is mild foraminal stenosis on the lef t side. IMPRESSION: 1. Stable appearance of the C5-6 level fusion with no evidence of significant central spinal canal st enosis at this level. There is again mild bilateral foraminal stenosis at this level. 2. Other level findings as described above but with minimal if any significant change compared to the prior MRI study of November 2019. 3. There is no abnormal signal in the spinal cord. No evidence of focal cord swelling nor atrophy. DATA REPOSITORY:
== END ==
PROVIDERS: PCP Family Medicine; Visit Provider Preventive Medicine Occupational Medicine
DX: M54.12 Radiculopathy, cervical region (principal)
CPT/HCPCS: 72141

== ENCOUNTER 2023-05-21 17:33 | Outpatient (CLI) | payer BC, SELFPAY ==
[2023-05-21 09:33] VITALS: BP 143/70; PULSE 61; RESP 20; TEMP 36.7; O2SAT 98
[2023-05-21 09:56] LABS: INR 1.4 (0.9-1.1); Prothrombin Time 13.7 sec (9.1-11.1)
== END 2023-05-21 17:34 | disposition home or self-care (01) ==
LOC: PC 17:33
PROVIDERS: PCP Family Medicine; Visit Provider Preventive Medicine Occupational Medicine
DX: R79.1 Abnormal coagulation profile (principal)
CPT/HCPCS: 36415; 85610

== ENCOUNTER 2023-08-06 10:22 | Outpatient (CLI) | payer BC, SELFPAY ==
--- NOTE | 2023-08-06 06:00 | DI.RAD_ITS ---
Exam(s) XR PAIN CLINIC CERVICAL SP 2V EXAM: XR PAIN CLINIC CERVICAL SP 2V CLINICAL HISTORY: DX: Cervical radiculopathy. TECHNIQUE: Fluoroscopy was provided for the referring physician for guidance with performing pain cl inic injection procedure. COMPARISON: No exams were available for comparison FINDINGS: Please see procedure note for details. Fluoro time: 25.5 seconds RADIATION DOSE DELIVERED: Ka,r=2.82 mGy
[2023-08-06 10:44] VITALS: BP 135/68; PULSE 57; RESP 20; TEMP 36.6; O2SAT 97
[2023-08-06 11:13] LABS: INR 1.1 (0.9-1.1); Prothrombin Time 10.8 sec (9.1-11.1)
[2023-08-06 11:47] VITALS: BP 162/78; PULSE 68; RESP 19; O2SAT 100
[2023-08-06] MEDS: Epidural Tray 1 EACH MC (11:48)
[2023-08-06] MEDS: Dexamethasone Sod. Phos./Pres-Free 10 MG/ML VIAL IJ (11:49)
[2023-08-06] MEDS: Omnipaque 240 MG/ML 50 ML BTL IJ (11:49)
--- NOTE | 2023-08-06 12:15 | PDOC.PAIN_ITS ---
Date of service: 08/06/23 Time of Service: 12:16 Pain Managment Procedure Note Procedure Note Procedure Note: Procedure Note Cervical Interlaminar Epidural Steroid Injection Date of Service: August 06, 2023 Patient:? Artem Pedraza? Provider:? Bry Wagoner DO, MPH Artem has been referred to the [facility] for cervical epidural steroid injection.? Pre-operative diagnosis: Cervical Radiculopathy Post-operative diagnosis: Same Pre-procedure pain: VAS= 8/10 Comments: He again did exceptionally well with his last MEETA, achieving >50% pain improvement for >3 months. He has been off his Coumadin, per his prescriber, for 5 days and his INR is 1.1 this morning. Artem was interviewed and the medical record was reviewed.? There were no medical, pharmacologic, radiographic or other structural contraindications to attempting fluoroscopically guided cervical interlaminar epidural steroid injection.? Risks, potential side effects, indications, and potential benefits of the procedure were reviewed with Artem.? Questions and concerns were addressed.? After it was clear that the patient was fully informed about the procedure, the printed consent form was signed by the patient and myself.? Artem was placed in the prone position on the fluoroscopy table and automated blood pressure cuff as well as pulse oximeter was applied. A standard time-out procedure was performed. The skin entry point for entering the epidural space by a midline C7-T1 interlaminar approach was identified under fluoroscopy and ma rked.? The skin entry point was thoroughly cleaned with Chlorhexadine preparation and the skin was draped.? Next a mixture of 2 mls of 1% lidocaine was infiltrated into the area of the planned skin entry point and underlying subcutaneous tissues.? Next an 18 gauge Tuohy needle was placed under fluoroscopic guidance and with loss of resistance technique into the epidural space utilizing multiple AP and 55 degree contralateral fluoroscopic views.? Upon correct needle placement and loss of resistance, there were no paresthesia or return of blood or CSF through the needle. Next 1 mls of preservative-free Omnipaque 240 was injected with clear epidural spread in the A/P and oblique views. Next, a solution of 15 mg of preservative-free Dexamethasone was injected. This was followed with 1ml of preservative-free normal saline. No unusual discomfort was expressed by Artem. The needle was withdrawn without difficulty. (49 mls of Omnipaque and 5 mg of Dexamethasone was wasted) Artem was observed and was without hemodynamic, neurologic, or allergic reactions.? Fluoroscopic images were digitally archived. Artem's vital signs were stable throughout the procedure and were as recorded in the doc flowsheet by the nursing staff.? If given, dosages of intravenous drugs for anxiolysis and analgesia were documented in MAR. Follow up plans and appointments were discussed with Artem.? Post procedure instruction was given as documented in nursing documentation and having met discharge criteria, Artem [facility] from the [facility]. A retrospective review of interlaminar cervical ESIs found that approximately two-thirds of patients with symptomatic cervical radiculopathy from disc herniation were able to avoid surgery for up to 1 year with treatment. Success rate was improved with earlier injection (< 100 days from diagnosis). Janett EL, Deirdre V, Art L, Yancy AN, Case EZEKIEL. Cervical epidural steroid injections for symptomatic disc herniations. J Spinal Disord Tech. 2006 September;19(3):183-6. ? COMMENTS: No apparent complications. Post-procedure pain: VAS= 1-2/10. Artem to contact [facility] as needed. If at least 50% improvement in pain and/or function for at least 3 months is achieved, this procedure can be repeated. I personally completed the entire procedure. BRY WAGONER DO, MPH ABPMR-subspecialty board certification in Pain Medicine [facility] [facility]
== END 2023-08-06 10:23 | disposition home or self-care (01) ==
LOC: PC 10:22
PROVIDERS: PCP Family Medicine; Visit Provider Preventive Medicine Occupational Medicine
DX: M54.12 Radiculopathy, cervical region (principal)
CPT/HCPCS: 00123; 36415; 62321; 72040; 85610; J1100; Q9967

== ENCOUNTER 2023-11-19 09:00 | Outpatient (CLI) | payer BC, SELFPAY ==
--- NOTE | 2023-11-19 06:00 | DI.RAD_ITS ---
Exam(s) XR PAIN CLINIC CERVICAL SP 2V EXAM: XR PAIN CLINIC CERVICAL SP 2V CLINICAL HISTORY: DX: Cervical Radiculopathy TECHNIQUE: 2D and realtime digital imaging was performed. CONTRAST MATERIAL: Refer to procedure report. COMPARISON: No exams were available for comparison FINDINGS: Fluoroscopy was provided for Dr. Wagoner during the performance of a cervical epidural steroid injectio n. Please refer to the procedure report for complete details. Ka,r=1.68 mGy IMPRESSION: RADIATION DOSE DELIVERED: 0.0 0.0 0
[2023-11-19 09:38] LABS: INR 1.1 (0.9-1.1); Prothrombin Time 10.8 sec (9.1-11.1)
[2023-11-19 09:47] VITALS: BP 146/74; PULSE 73; RESP 19; TEMP 37.3; O2SAT 97
--- NOTE | 2023-11-19 10:20 | PDOC.PAIN_ITS ---
Date of service: 11/19/23 Time of Service: 10:20 Pain Managment Procedure Note Procedure Note Procedure Note: Procedure Note Cervical Interlaminar Epidural Steroid Injection Date of Service: November 19, 2023 Patient:? Artem Pedraza? Provider:? Bry Wagoner DO, MPH Artem has been referred to the [facility] for cervical epidural steroid injection.? Pre-operative diagnosis: Cervical Radiculopathy Post-operative diagnosis: Same Pre-procedure pain: VAS= 6/10 Comments: He has done very well with CESIs in the past. His las MEETA was on 08/06/23 and he had >3months of >50% pain relief. Artem was interviewed and the medical record was reviewed.? There were no medical, pharmacologic, radiographic or other structural contraindications to attempting fluoroscopically guided cervical interlaminar epidural steroid injection.? Risks, potential side effects, indications, and potential benefits of the procedure were reviewed with Artem.? Questions and concerns were addressed.? After it was clear that the patient was fully informed about the procedure, the printed consent form was signed by the patient and myself.? Artem was placed in the prone position on the fluoroscopy table and automated blood pressure cuff as well as pulse oximeter was applied. A standard time-out procedure was performed. The skin entry point for entering the epidural space by a midline T1-T2 interlaminar approach was identified under fluoroscopy and marked.? The skin entry point was thoroughly cleaned with Chlorhexadine preparation and the skin was draped.? Next a mixture of 2 mls of 1% lidocaine was infiltrated into the area of the planned skin entry point and underlying subcutaneous tissues.? Next an 18 gauge Tuohy needle was placed under fluoroscopic guidance and with loss of resistance technique into the epidural space utilizing multiple AP and 55 degree contralateral fluoroscopic views.? Upon correct needle placement and loss of resistance, there were no paresthesia or return of blood or CSF through the needle. Next 1 mls of preservative-free Omnipaque 240 was injected with clear epidural spread in the A/P and oblique views. Next, a solution of 15 mg of preservative-free Dexamethasone was injected. This was followed with 1ml of preservative-free normal saline. No unusual discomfort was expressed by Artem. The needle was withdrawn without difficulty. (49 mls of Omnipaque and 5 mg of Dexamethasone was wasted) Artem was observed and was without hemodynamic, neurologic, or allergic reactions.? Fluoroscopic images were digitally archived. Artem's vital signs were stable throughout the procedure and were as recorded in the doc flowsheet by the nursing staff.? If given, dosages of intravenous drugs for anxiolysis and analgesia were documented in MAR. Follow up plans and appointments were discussed with Artem.? Post procedure instruction was given as documented in nursing documentation and having met discharge criteria, Artem [facility] from [facility]. A retrospective review of interlaminar cervical ESIs found that approximately two-thirds of patients with symptomatic cervical radiculopathy from disc herniation were able to avoid surgery for up to 1 year with treatment. Success rate was improved with earlier injection (< 100 days from diagnosis). Janett EL, Deirdre V, Art L, Yancy AN, Case EZEKIEL. Cervical epidural steroid injections for symptomatic disc herniations. J Spinal Disord Tech. 2006 September;19(3):183-6. ? COMMENTS: He does have what appears to be a small cyst to the upper back. This is close to the area in which I enter the skin for the C7-T1 MEETA. I did adjust to T1-T2 level to get further away from this cyst. I asked him to ask his PCP about draining this cyst. He said he would. No apparent complications. Post- procedure pain: VAS= 3/10. Artem to contact [place] for [facility] as needed. If at least 50% improvement in pain and/or function for at least 3 months is achieved, this procedure can be repeated. I personally completed the entire procedure. BRY WAGONER DO, MPH ABPMR-subspecialty board certification in Pain Medicine [facility] [facility]
[2023-11-19 10:21] VITALS: BP 145/76; PULSE 77; RESP 18; O2SAT 99
[2023-11-19] MEDS: Omnipaque 240 MG/ML 50 ML BTL IJ (10:21)
[2023-11-19] MEDS: Epidural Tray 1 EACH MC (10:21)
[2023-11-19] MEDS: Dexamethasone Sod. Phos./Pres-Free 10 MG/ML VIAL IJ (10:22)
== END 2023-11-19 09:01 | disposition home or self-care (01) ==
LOC: PC 09:00
PROVIDERS: PCP Family Medicine; Visit Provider Preventive Medicine Occupational Medicine
DX: M54.12 Radiculopathy, cervical region (principal)
CPT/HCPCS: 36415; 62321; 72040; 85610; J1100; Q9967

== ENCOUNTER 2023-12-08 08:16 | Outpatient (CLI) | payer BC, SELFPAY ==
--- NOTE | 2023-12-08 08:15 | RT.EKG_ITS ---
APPROVED REPORT Exam: Resting ECG Reason for Exam: histiry AVR Patient Location: O HR:57 bpm ECG Measurements Heart Rate 57 AXIS LA 262 P 45 QRSd 133 QRS -22 QT 409 T 256 QTc 399 Conclusion Sinus rhythm...normal P axis, V-rate 50- 99 Prolonged LA interval...LA >220, V-rate 50- 90 Left atrial enlargement...P, P'>60mS, <-0.15mV V1 Left bundle branch block...QRSd>120, broad/notched R Baseline wander in lead(s) V1
== END 2023-12-08 08:17 | disposition home or self-care (01) ==
LOC: DI.CARD 08:18
PROVIDERS: PCP Family Medicine; Visit Provider Internal Medicine Cardiovascular Disease
DX: I35.9 Nonrheumatic aortic valve disorder, unspecified (principal); I51.7 Cardiomegaly; I44.7 Left bundle-branch block, unspecified; R94.31 Abnormal electrocardiogram [ECG] [EKG]
CPT/HCPCS: 93010

== ENCOUNTER → 2023-12-25 00:09 | Outpatient (CLI) | payer BC, SELFPAY ==
--- NOTE | 2023-12-25 06:30 | DI.MRI_ITS ---
Exam(s) MR LUMBAR SPINE WO EXAM: MR LUMBAR SPINE WO CLINICAL HISTORY: Lumbar radicupathy to left L5.m54.16. TECHNIQUE: Multiplanar multisequence MRI of the Lumbar spine was performed. FINDINGS: Bones: The last intervertebral disc space is designated the L5/S1 level for the numbering purpose of this examination. Postsurgical changes are again seen of at L4-L5 discectomy and posterior spinal r ods and laminectomy at L4-L5. There are endplate osteophytes at multiple levels of the lumbar spine. The signal characteristics are unremarkable. Cord: The conus tip ends at the L1 level. It is of normal size and signal intensity. T12-L1: No disc herniations or bulges are present. No central spinal canal or neural foraminal stenos is. L1-2: No disc herniations or bulges are present. Degenerative changes of the facets are seen.No signi ficant central spinal canal stenosis is seen. There is mild narrowing of the neural foramen. L2-3: No disc herniations or bulges are present. There are degenerative changes of the facets. No si gnificant central spinal canal stenosis is seen.There is mild narrowing of the neural foramen bilater ally. L3-4: No disc herniations or bulges are present. There are degenerative changes of the facets present . No significant central spinal canal stenosis is present.There is moderately severe bilateral neura l foraminal stenosis. L4-5: No disc herniations or bulges are present. No significant central spinal canal stenosis. There is mild bilateral neural foraminal narrowing. L5-S1: No disc herniations or bulges are present. No central spinal canal or neural foraminal stenosi s. Soft tissues: The visualized SI joints and sacrum are well maintained. The paraspinal soft tissues ar e unremarkable. There is a cyst on the left kidney. No follow-up is recommended. IMPRESSION: 1. Postsurgical changes are again seen at L4-L5. 2. Multilevel degenerative changes are present resulting in neural foraminal narrowing as described erica orr. DATA REPOSITORY:
== END ==
PROVIDERS: PCP Family Medicine; Visit Provider Preventive Medicine Occupational Medicine
DX: M54.16 Radiculopathy, lumbar region (principal)
CPT/HCPCS: 72148

== ENCOUNTER 2024-02-17 14:16 | Outpatient (CLI) | payer BC, SELFPAY ==
--- NOTE | 2024-02-17 06:00 | DI.RAD_ITS ---
Exam(s) XR PAIN CLINIC LUMBAR SP 2V EXAM: XR PAIN CLINIC LUMBAR SP 2V CLINICAL HISTORY: DX: Lumbar radiculopathy. TECHNIQUE: Fluoroscopy was provided for the referring physician for guidance with performing pain cl inic injection procedure. COMPARISON: No exams were available for comparison FINDINGS: Please see procedure note for details. Fluoro time: 43 seconds RADIATION DOSE DELIVERED: Ka,r=7.5 mGy
[2024-02-17 15:25] LABS: INR 1.1 (0.9-1.1); Prothrombin Time 11.2 sec (9.1-11.1)
[2024-02-17 15:36] VITALS: BP 150/62; PULSE 58; RESP 20; TEMP 36.7; O2SAT 98
[2024-02-17 15:55] VITALS: PULSE 67; RESP 30; O2SAT 98
[2024-02-17 15:56] VITALS: BP 202/166; PULSE 67; PULSE 68; RESP 20; O2SAT 100
[2024-02-17 16:01] VITALS: BP 199/88; PULSE 66; PULSE 69; RESP 26; O2SAT 98
[2024-02-17 16:02] VITALS: PULSE 70; RESP 18; O2SAT 100
[2024-02-17 16:08] VITALS: BP 197/69; PULSE 63
--- NOTE | 2024-02-17 16:08 | PDOC.PAIN ---
Date of service: 02/17/24 Time of Service: 16:09 Pain Managment Procedure Note Procedure Note Procedure Note: PROCEDURE NOTE CAUDAL EPIDURAL STEROID INJECTION Date of Service: February 17, 2024 Patient:Artem Rahman? Provider:? Murali Wagoner DO, MPH Artem Pedraza has been [facility] for caudal epidural steroid injection.? Pre-operative diagnosis: Lumbosacral Radiculopathy Post-operative diagnosis: Same Pre-Procedure Pain: VAS= 6/10. COMMENTS: I previously evaluated him in the office and reviewed his lumbar spine MRI. Erickwas interviewed and the medical record was reviewed.? There were no medical, pharmacologic, radiographic or other structural contraindications to attempting fluoroscopically guided epidural steroid injection.? Risks and expected side effects as well as potential benefit of the procedure were reviewed with Erick, and the patient's voiced concerns were addressed.? The printed consent form was signed.? Standard time-out procedure was performed. Erick was placed in the prone position on the fluoroscopy table and automated blood pressure cuff and pulse oximeter applied.? The skin entry point for entering/approaching the epidural space by a caudal approach through the sacral hiatus ed identified with surgical skin marking.? Following thorough chlorhexidine preparation of the skin and draping and 1% lidocaine infiltration of the skin entry point and subcutaneous tissues, a 17 gauge Touhy needle was placed under fluoroscopic guidance? into the epidural space. Needle tip placement and depth were aided and confirmed by fluoroscopy in the lateral and AP position. There was no paresthesia or return of blood or CSF through the needle. 1 cc of Omnipaque 240 was injected with clear epidural spread confirmed with fluoroscopy. An Arrow 19G radio-opaque epidural catheter was advanced into the epidural space to the L5-S1 level and 2 cc of Omnipaque 240 was injected with clear epidural spread. 80 mg of Depo-Medrol was? injected. There was no unusual discomfort expressed by Artem. The needle and catheter were then flushed with 1 cc of 1% Lidocaine and they were removed together without difficulty (49 cc of Omnipaque was wasted). Artem was observed and was without hemodynamic, neurologic, or allergic reactions.? Fluoroscopic images were digitally archived. Artem's vital signs were stable throughout the procedure and were as recorded in the docflowsheet by the nursing staff.? If given, dosages of intravenous drugs for anxiolysis and analgesia were documented in MAR. Follow up plans and appointments were discussed with Artem.? Post procedure instruction was given as documented in nursing documentation and having met discharge criteria, [facility]. ? COMMENTS: No apparent complications.? Post-procedure pain: VAS= 2/10. If the patient receives at least 50% improvement in pain and/or function for at least 3 months, this procedure can be repeated. I personally completed the entire procedure. MURALI WAGONER DO, MPH ABPM&R - Subspecialty board certification in Pain Medicine [facility]
[2024-02-17] MEDS: Omnipaque 240 MG/ML 50 ML BTL IJ (16:13)
[2024-02-17] MEDS: methylPREDNISolone ACETATE 80 MG/ML VIAL IJ (16:14)
[2024-02-17] MEDS: Nerve Block Tray 1 EACH MC (16:14)
== END 2024-02-17 14:17 | disposition home or self-care (01) ==
LOC: PC 14:16
PROVIDERS: PCP Family Medicine; Visit Provider Preventive Medicine Occupational Medicine
DX: M54.17 Radiculopathy, lumbosacral region (principal)
CPT/HCPCS: 36415; 62323; 72100; 85610; J1010; Q9967

== ENCOUNTER 2024-03-16 15:01 | Outpatient (CLI) | payer BC, SELFPAY ==
[2024-03-16] MEDS: Bacitracin 1 PACKET (15:40)
--- NOTE | 2024-03-16 15:46 | PDOC.PAIN ---
Date of service: 03/16/24 Time of Service: 15:46 Pain Managment Procedure Note Procedure Note Procedure Note: The patient was scheduled for a cervical epidural steroid injection today. Prior to the procedure, he did state that he had a cyst removed from his upper back 2 days ago. I did recommend that this be removed at his last cervical epidural steroid injection. Prior to getting him ready for the procedure, I did take a look at the procedure site. He has a vertical incision and 3 visible stitches. There is what appears to be thick purulent material coming out of the wound and this is also on his bandage. I did remove the bandage and took a photo of this area and showed him. I then discussed with him that it would not be a good idea for him to have the cervical epidural steroid injection (MEETA) today as this area could be infected and this area is very close to my insertion location for the MEETA. He is in agreement. He will watch the area. I did clean the area with alcohol and then put Bacitracin around the wound and then placed a large bandage over the wound. I asked him to change the bandage regularly and go without a bandage when he could at home to allow the wound to dry out a bit. He should watch for fever and/or chills and notify his PCP or the ER immediately if he has those. We will reschedule his MEETA for 3-4 weeks from now. He completely understood being cautious and will restart his Coumadin.
== END 2024-03-16 15:02 | disposition home or self-care (01) ==
LOC: PC 15:02
PROVIDERS: PCP Family Medicine; Visit Provider Preventive Medicine Occupational Medicine
DX: L08.89 Other specified local infections of the skin and subcutaneous tissue (principal); Z98.890 Other specified postprocedural states; Z53.09 Procedure and treatment not carried out because of other contraindication
CPT/HCPCS: 85610

== ENCOUNTER 2024-05-12 11:03 | Outpatient (CLI) | payer BC, SELFPAY ==
--- NOTE | 2024-05-12 06:00 | DI.RAD_ITS ---
Exam(s) XR PAIN CLINIC CERVICAL SP 2V EXAM: XR PAIN CLINIC CERVICAL SP 2V CLINICAL HISTORY: Dx: Cervical Radiculopathy. TECHNIQUE: Fluoroscopy was provided for the referring physician for guidance with performing pain cl inic injection procedure. COMPARISON: No exams were available for comparison FINDINGS: Please see procedure note for details. Fluoro time: 31.5 seconds RADIATION DOSE DELIVERED: Ka,r=2.83 mGy
[2024-05-12 11:21] VITALS: BP 131/69; PULSE 60; RESP 20; TEMP 36.6; O2SAT 99
[2024-05-12 11:41] LABS: INR 1.1 (0.9-1.1); Prothrombin Time 11.2 sec (9.1-11.1)
[2024-05-12 12:10] VITALS: PULSE 77; RESP 17; O2SAT 100
[2024-05-12 12:12] VITALS: BP 162/76; PULSE 78; PULSE 79; RESP 23; O2SAT 100
[2024-05-12 12:16] VITALS: BP 160/70; PULSE 75; RESP 19; O2SAT 99
[2024-05-12 12:20] VITALS: PULSE 74; RESP 18; O2SAT 100
[2024-05-12 12:26] VITALS: BP 162/77; PULSE 82
[2024-05-12] MEDS: Dexamethasone Sod. Phos./Pres-Free 10 MG/ML VIAL IJ (12:30)
[2024-05-12] MEDS: Epidural Tray 1 EACH MC (12:30)
[2024-05-12] MEDS: Omnipaque 240 MG/ML 50 ML BTL IJ (12:30)
--- NOTE | 2024-05-12 12:31 | PDOC.PAIN ---
Date of service: 05/12/24 Time of Service: 12:31 Pain Managment Procedure Note Procedure Note Procedure Note: Procedure Note Cervical Interlaminar Epidural Steroid Injection Date of Service: May 12, 2024 Patient:? Atrem Pedraza? Provider:? Bry Wagoner DO, MPH Artem has been referred to the [facility] for cervical epidural steroid injection.? Pre-operative diagnosis: Cervical Radiculopathy ICD-10 M54.12 Post-operative diagnosis: Same Pre-procedure pain: VAS= 7/10 Comments: He held his blood thinner and his INR was 1.1 just prior to the procedure. Artem was interviewed and the medical record was reviewed.? There were no medical, pharmacologic, radiographic or other structural contraindications to attempting fluoroscopically guided cervical interlaminar epidural steroid injection.? Risks, potential side effects, indications, and potential benefits of the procedure were reviewed with Artem.? Questions and concerns were addressed.? After it was clear that the patient was fully informed about the procedure, the printed consent form was signed by the patient and myself.? Artem was placed in the prone position on the fluoroscopy table and automated blood pressure cuff as well as pulse oximeter was applied. A standard time-out procedure was performed. The skin entry point for entering the epidural space by a midline C7-T1 interlaminar approach was identified under fluoroscopy and marked.? The skin entry point was thoroughly cleaned with Chlorhexadine preparation and the skin was draped.? Next a mixture of 2 mls of 1% lidocaine was infiltrated into the area of the planned skin entry point and underlying subcutaneous tissues.? Next an 18 gauge Tuohy needle was placed under fluoroscopic guidance and with loss of resistance technique into the epidural space utilizing multiple AP and 55 degree contralateral fluoroscopic views.? Upon correct needle placement and loss of resistance, there were no paresthesia or return of blood or CSF through the needle. Next 1 mls of preservative-free Omnipaque 240 was injected with clear epidural spread in the A/P and oblique views. Next, a solution of 15 mg of preservative-free Dexamethasone was injected. This was followed with 1ml of preservative-free normal saline. No unusual discomfort was expressed by Artem. The needle was withdrawn without difficulty. (49 mls of Omnipaque and 5 mg of Dexamethasone was wasted) Artem was observed and was without hemodynamic, neurologic, or allergic reactions.? Fluoroscopic images were digitally archived. Artem's vital signs were stable throughout the procedure and were as recorded in the doc flowsheet by the nursing staff.? If given, dosages of intravenous drugs for anxiolysis and analgesia were documented in MAR. Follow up plans and appointments were discussed with Artem.? Post procedure instruction was given as documented in nursing documentation and having met discharge criteria, Art[facility] the [facility]. A retrospective review of interlaminar cervical ESIs found that approximately two-thirds of patients with symptomatic cervical radiculopathy from disc herniation were able to avoid surgery for up to 1 year with treatment. Success rate was improved with earlier injection (< 100 days from diagnosis). Janett EL, Deirdre V, Art L, Yancy AN, Case FALCON. Cervical epidural steroid injections for symptomatic disc herniations. J Spinal Disord Tech. 2006 September;19(3):183-6. ? COMMENTS: No apparent complications. Post-procedure pain: VAS= 3/10. Artem to contact [facility] as needed. If at least 50% improvement in pain and/or function for at least 3 months is achieved, this procedure can be repeated. I personally completed the entire procedure. BRY WAGONER DO, MPH ABPMR-subspecialty board certification in Pain Medicine [facility] [facility]
== END 2024-05-12 11:04 | disposition home or self-care (01) ==
LOC: PC 11:03
PROVIDERS: PCP Family Medicine; Visit Provider Preventive Medicine Occupational Medicine
DX: M54.12 Radiculopathy, cervical region (principal)
CPT/HCPCS: 36415; 62321; 72040; 85610; J1100; Q9967

== ENCOUNTER 2024-07-07 08:06 | Outpatient (CLI) | payer BC, SELFPAY ==
[2024-07-07 08:20] VITALS: BP 158/60; PULSE 67; RESP 18; TEMP 36.6; O2SAT 99
[2024-07-07 08:54] LABS: INR 1.1 (0.9-1.1); Prothrombin Time 10.8 sec (9.1-11.1)
[2024-07-07 09:15] VITALS: PULSE 67; O2SAT 100
[2024-07-07 09:16] VITALS: BP 209/78; PULSE 73; PULSE 74; RESP 15; O2SAT 100
[2024-07-07 09:20] VITALS: PULSE 70; RESP 19; O2SAT 99
[2024-07-07 09:29] VITALS: BP 154/71; PULSE 63
--- NOTE | 2024-07-07 09:29 | DI.RAD_ITS ---
Exam(s) XR PAIN CLINIC LUMBAR SP 2V EXAM: XR PAIN CLINIC LUMBAR SP 2V CLINICAL HISTORY: Dx: Lumbar Radiculopathy. TECHNIQUE: Fluoroscopy was provided for the referring physician for guidance with performing pain cl inic injection procedure. COMPARISON: No exams were available for comparison FINDINGS: Please see procedure note for details. Fluoro time: 26.9 seconds RADIATION DOSE DELIVERED: Ka,r=5.47 mGy
[2024-07-07] MEDS: Omnipaque 240 MG/ML 50 ML BTL IJ (09:32)
[2024-07-07] MEDS: methylPREDNISolone ACETATE 80 MG/ML VIAL IJ (09:32)
[2024-07-07] MEDS: Nerve Block Tray 1 EACH MC (09:32)
--- NOTE | 2024-07-07 11:09 | PDOC.PAIN_ITS ---
Date of service: 07/07/24 Time of Service: 09:15 Pain Managment Procedure Note Procedure Note Procedure Note: PROCEDURE NOTE CAUDAL EPIDURAL STEROID INJECTION Date of Service: July 07, 2024 Patient:Artem Rahman? Provider:? Bry Wagoner DO, MPH Artem Pedraza has been referred to the [facility] for caudal epidural steroid injection.? Pre-operative diagnosis: Lumbosacral Radiculopathy, ICD-10 M54.17 Post-operative diagnosis: Same Pre-Procedure Pain: VAS= 8/10. COMMENTS: He had >4 months of >50% pain improvement with his last caudal IAN. His INR was 1.1 this morning having stopped his Coumadin earlier in the week. Erickwas interviewed and the medical record was reviewed.? There were no medical, pharmacologic, radiographic or other structural contraindications to attempting fluoroscopically guided epidural steroid injection.? Risks and expected side effects as well as potential benefit of the procedure were reviewed with Erick, and the patient's voiced concerns were addressed.? The printed consent form was signed.? Standard time-out procedure was performed. Erick was placed in the prone position on the fluoroscopy table and automated blood pressure cuff and pulse oximeter applied.? The skin entry point for entering/approaching the epidural space by a caudal approach through the sacral hiatus ed identified with surgical skin marking.? Following thorough chlorhexidine preparation of the skin and draping and 1% lidocaine infiltration of the skin entry point and subcutaneous tissues, a 17 gauge Touhy needle was placed under fluoroscopic guidance? into the epidural space. Needle tip placement and depth were aided and confirmed by fluoroscopy in the lateral and AP position. There was no paresthesia or return of blood or CSF through the needle. 1 cc of Omnipaque 240 was injected with clear epidural spread confirmed with fluoroscopy. An Arrow 19G radio-opaque epidural catheter was advanced into the epidural space to the L5 level and 2 cc of Omnipaque 240 was injected with clear epidural spread. 80 mg of Depo-Medrol was? injected. There was no unusual discomfort expressed by Artem. The needle and catheter were then flushed with 1 cc of 1% Lidocaine and they were removed together without difficulty (49 cc of Omnipaque was wasted). Artem was observed and was without hemodynamic, neurologic, or allergic reactions.? Fluoroscopic images were digitally archived. Ivorys vital signs were stable throughout the procedure and were as recorded in the docflowsheet by the nursing staff.? If given, dosages of intravenous drugs for anxiolysis and analgesia were documented in MAR. Follow up plans and appointments were discussed with Artem.? Post procedure instruction was given as documented in nursing documentation and having met discharge criteria, Artem was [facility] from the [facility]. ? COMMENTS: No apparent complications.? Post-procedure pain: VAS= 3/10. If the patient receives at least 50% improvement in pain and/or function for at least 3 months, this procedure can be repeated. I personally completed the entire procedure. BRY WAGONER DO, MPH ABPM&R - Subspecialty board certification in Pain Medicine [facility] [facility]
== END 2024-07-07 08:07 | disposition home or self-care (01) ==
LOC: PC 08:06
PROVIDERS: PCP Family Medicine; Visit Provider Preventive Medicine Occupational Medicine
DX: M54.17 Radiculopathy, lumbosacral region (principal)
CPT/HCPCS: 36415; 62323; 72100; 85610; J1010; Q9967

== ENCOUNTER 2024-10-27 12:30 | Outpatient (CLI) | payer BC, SELFPAY ==
[2024-10-27] VITALS (11 sets, daily range): BP systolic 135–194; BP diastolic 54–143; PULSE 60–113; RESP 13–20; TEMP 37; O2SAT 96–100
--- NOTE | 2024-10-27 06:00 | DI.RAD_ITS ---
Exam(s) XR PAIN CLINIC CERVICAL SP 2V EXAM: XR PAIN CLINIC CERVICAL SP 2V CLINICAL HISTORY: Dx: Cervical Radiculopathy TECHNIQUE: 2D and realtime digital imaging was performed. Radiologist not present. CONTRAST MATERIAL: None. COMPARISON: No exams were available for comparison FINDINGS: Fluoroscopy was provided for pain management therapy. Cervical injection. Please refer to procedure report or details. Radiation Exposure Index: Ka,r=3.52 mGy IMPRESSION: As above. RADIATION DOSE DELIVERED:
[2024-10-27 13:20] LABS: INR 1.2 (0.9-1.1); Prothrombin Time 11.6 sec (9.1-11.1)
[2024-10-27] MEDS: Omnipaque 240 MG/ML 50 ML BTL IJ (14:25)
[2024-10-27] MEDS: Epidural Tray 1 EACH MC (14:26)
[2024-10-27] MEDS: Dexamethasone Sod. Phos./Pres-Free 10 MG/ML VIAL IJ (14:26)
--- NOTE | 2024-11-01 09:09 | PDOC.PAIN_ITS ---
Date of service: 10/27/24 Time of Service: 12:45 Pain Managment Procedure Note Procedure Note Procedure Note: Procedure Note Cervical Interlaminar Epidural Steroid Injection Date of Service: October 27, 2024 Patient:? Artem Pedraza? Provider:? Bry Wagoner DO, MPH Artem has been referred to the [facility] for cervical epidural steroid injection.? Pre-operative diagnosis: Cervical Radiculopathy ICD-10 M54.12 Post-operative diagnosis: Same Pre-procedure pain: VAS= 6/10 Comments: He last had this procedure on 05/12/2024 and had over 4 months of over 50% pain relief. Artem was interviewed and the medical record was reviewed.? There were no medical, pharmacologic, radiographic or other structural contraindications to attempting fluoroscopically guided cervical interlaminar epidural steroid injection.? Risks, potential side effects, indications, and potential benefits of the procedure were reviewed with Artem.? Questions and concerns were addressed.? After it was clear that the patient was fully informed about the procedure, the printed consent form was signed by the patient and myself.? Artem was placed in the prone position on the fluoroscopy table and automated blood pressure cuff as well as pulse oximeter was applied. A standard time-out procedure was performed. The skin entry point for entering the epidural space by a midline C7-T1 interlaminar approach was identified under fluoroscopy and marked.? The skin entry point was thoroughly cleaned with Chlorhexadine preparation and the skin was draped.? Next a mixture of 2 mls of 1% lidocaine was infiltrated into the area of the planned skin entry point and underlying subcutaneous tissues.? Next an 18 gauge Tuohy needle was placed under fluoroscopic guidance and with loss of resistance technique into the epidural space utilizing multiple AP and 55 degree contralateral fluoroscopic views.? Upo n correct needle placement and loss of resistance, there were no paresthesia or return of blood or CSF through the needle. Next 1 mls of preservative-free Omnipaque 240 was injected with clear epidural spread in the A/P and oblique views. Next, a solution of 15 mg of preservative-free Dexamethasone was injected. This was followed with 1ml of preservative-free normal saline. No unusual discomfort was expressed by Artem. The needle was withdrawn without difficulty. (49 mls of Omnipaque and 5 mg of Dexamethasone was wasted) Artem was observed and was without hemodynamic, neurologic, or allergic reactions.? Fluoroscopic images were digitally archived. Ivorys vital signs were stable throughout the procedure and were as recorded in the doc flowsheet by the nursing staff.? If given, dosages of intravenous drugs for anxiolysis and analgesia were documented in MAR. Follow up plans and appointments were discussed with Artem.? Post procedure instruction was given as documented in nursing documentation and having met discharge criteria, Artem was [facility] from the [facility]. A retrospective review of interlaminar cervical ESIs found that approximately two-thirds of patients with symptomatic cervical radiculopathy from disc herniation were able to avoid surgery for up to 1 year with treatment. Success rate was improved with earlier injection (< 100 days from diagnosis). Janett EL, Deirdre V, Art L, Yancy AN, Case EZEKIEL. Cervical epidural steroid injections for symptomatic disc herniations. J Spinal Disord Tech. 2006 September;19(3):183-6. ? COMMENTS: No apparent complications. Post-procedure pain: VAS= 1/10. Artem to contact [facility] as needed. If at least 50% improvement in rosalie n and/or function for at least 3 months is achieved, this procedure can be repeated. I personally completed the entire procedure. BRY WAGONER DO, MPH ABPMR-subspecialty board certification in Pain Medicine [facility] Coding Conscious Sedation used for procedure: No CPT Codes: Inj Spine C/T w/Imaging - 27240 ([id number] ~G) Additional Codes: Date of Service (05615) Date of service: 10/27/24
== END 2024-10-27 12:31 | disposition home or self-care (01) ==
LOC: PC 12:33
PROVIDERS: PCP Family Medicine; Visit Provider Preventive Medicine Occupational Medicine
DX: M54.12 Radiculopathy, cervical region (principal)
CPT/HCPCS: 62321; 72040; 85610; J1100; Q9967

== ENCOUNTER 2025-01-05 14:06 | Outpatient (REF) | payer BC, SELFPAY ==
[2025-01-05 13:36] LABS: Abs Immature Grans 0.01 10^3/uL (0.0-0.06); HCT 42.7 % (40.0-50.0); HGB 13.8 g/dL (13.5-17.5); Immature Grans % 0.2 %; MCH 27.0 pg (27.0-33.0); MCHC 32.3 % (32.0-36.0); MCV 84 fL (80-95); MPV 10.5 fL (8.0-11.0); Platelet Count 211 10^3/uL (130-400); RBC 5.11 10^6/uL (4.36-5.78); RDW 15.1 % (11.8-14.1); RDW-SD 45.7 fL; WBC 5.10 10^3/uL (4.4-10.8)
[2025-01-05 13:51] LABS: ALT 26 U/L (16-63); AST 20 U/L (15-37); Albumin 3.8 g/dL (3.4-5.0); Alkaline Phosphatase 68 U/L (46-116); Anion Gap 6.7 mmol/L (3-11); BUN 16 mg/dL (7-18); Bilirubin, Total 0.8 mg/dL (0.2-1.0); CO2 26.3 mmol/L (21.0-32.0); Calcium 9.0 mg/dL (8.5-10.1); Calculated LDL 65 mg/dL (<100); Chloride 107 mmol/L (98-107); Cholesterol 136 mg/dL (<200); Estimated GFR 103.20 (mL/min/1.73m2); Glucose 87 mg/dL (74-106); HDL Cholesterol 62 mg/dL (>or=40); Potassium 4.2 mmol/L (3.5-5.1); Sodium 140 mmol/L (136-145); Total Protein 6.4 g/dL (6.4-8.2); Triglyceride 45 mg/dL (<150)
[2025-01-05 14:07] LABS: INR 3.4 (0.9-1.1); PTT Activated 37.2 sec (20.6-30.2); Prothrombin Time 31.5 sec (9.1-11.1)
[2025-01-05 23:06] LABS: PSA, Screening 0.6 ng/mL (<=6.5)
== END 2025-01-05 14:07 | disposition home or self-care (01) ==
LOC: NCHCN 14:06
PROVIDERS: PCP Family Medicine; Visit Provider Family Medicine
DX: Z00.00 Encounter for general adult medical examination without abnormal findings (principal)
CPT/HCPCS: 80053; 80061; 84153; 85025; 85610; 85730

== ENCOUNTER 2025-02-23 09:21 | Outpatient (CLI) | payer BC, SELFPAY ==
[2025-02-23 10:08] LABS: INR 1.1 (0.9-1.1); Prothrombin Time 10.9 sec (9.1-11.1)
[2025-02-23 10:23] VITALS: BP 156/70; PULSE 58; RESP 20; TEMP 37; O2SAT 98
[2025-02-23 10:59] VITALS: PULSE 67; RESP 16; O2SAT 100
[2025-02-23 11:00] VITALS: PULSE 65; RESP 16; O2SAT 100
[2025-02-23 11:01] VITALS: BP 207/66; PULSE 67; RESP 15; O2SAT 100
[2025-02-23 11:10] VITALS: PULSE 61; RESP 14; O2SAT 99
[2025-02-23 11:17] VITALS: BP 164/108; PULSE 67
--- NOTE | 2025-02-23 11:18 | PDOC.PAIN_ITS ---
Date of service: 02/23/25 Time of Service: 11:19 Pain Managment Procedure Note Procedure Note Procedure Note: Procedure Note Cervical Interlaminar Epidural Steroid Injection Date of Service: February 23, 2025 Patient:? Artem Pedraza? Provider:? Bry Wagoner DO, MPH Artem has been referred to the [facility] for cervical epidural steroid injection.? Pre-operative diagnosis: Cervical Radiculopathy ICD-10 M54.12 Post-operative diagnosis: Same Pre-procedure pain: VAS= 6/10 Comments: He has >3 months of >50% pain relief after his last MEETA on 10/27/24. His INR was 1.1 today. Artem was interviewed and the medical record was reviewed.? There were no medical, pharmacologic, radiographic or other structural contraindications to attempting fluoroscopically guided cervical interlaminar epidural steroid injection.? Risks, potential side effects, indications, and potential benefits of the procedure were reviewed with Artem.? Questions and concerns were addressed.? After it was clear that the patient was fully informed about the procedure, the printed consent form was signed by the patient and myself.? Artem was placed in the prone position on the fluoroscopy table and automated blood pressure cuff as well as pulse oximeter was applied. A standard time-out procedure was performed. The skin entry point for entering the epidural space by a midline C7-T1 interlaminar approach was identified under fluoroscopy and marked.? The skin entry point was thoroughly cleaned with Chlorhexadine preparation and the skin was draped.? Next a mixture of 2 mls of 1% lidocaine was infiltrated into the area of the planned skin entry point and underlying subcutaneous tissues.? Next an 18 gauge Tuohy needle was placed under fluoroscopic guidance and with loss of resistance technique into the epidural space utilizing multiple AP and 55 degree contralateral fluoroscopic views.? Upon correct needle placement and loss of resistance, there were no paresthesia or return of blood or CSF through the needle. Next 1 mls of preservative-free Omnipaque 240 was injected with clear epidural spread in the A/P and oblique views. Next, a solution of 15 mg of preservative-free Dexamethasone was injected. This was followed with 1ml of preservative-free normal saline. No unusual discomfort was expressed by Artem. The needle was withdrawn without difficulty. (49 mls of Omnipaque and 5 mg of Dexamethasone was wasted) Artem was observed and was without hemodynamic, neurologic, or allergic reactions.? Fluoroscopic images were digitally archived. Ivorys vital signs were stable throughout the procedure and were as recorded in the doc flowsheet by the nursing staff.? If given, dosages of intravenous drugs for anxiolysis and analgesia were documented in MAR. Follow up plans and appointments were discussed with Artem.? Post procedure instruction was given as documented in nursing documentation and having met discharge criteria, Artem was [facility] from the [facility]. A retrospective review of interlaminar cervical ESIs found that approximately two-thirds of patients with symptomatic cervical radiculopathy from disc herniation were able to avoid surgery for up to 1 year with treatment. Success rate was improved with earlier injection (< 100 days from diagnosis). Janett EL, Deirdre V, Art L, Yancy AN, Case EZEKIEL. Cervical epidural steroid injections for symptomatic disc herniations. J Spinal Disord Tech. 2006 September;19(3):183-6. ? COMMENTS: No apparent complications. Post-procedure pain: VAS= 3-4/10. Artem to contact [facility] as needed. If at least 50% improvement in pain and/or function for at least 3 months is achieved, this procedure can be repeated. I personally completed the entire procedure. BRY WAGONER DO, MPH ABPMR-subspecialty board certification in Pain Medicine [facility] Coding Conscious Sedation used for procedure: No CPT Codes: Inj Spine C/T w/Imaging - 13825 ([id number] ~G) Additional Codes: Date of Service (51939) Date of service: 02/23/25 Diagnoses: Cervical radiculopathy
--- NOTE | 2025-02-23 11:19 | DI.RAD_ITS ---
Exam(s) XR PAIN CLINIC CERVICAL SP 2V EXAM: XR PAIN CLINIC CERVICAL SP 2V CLINICAL HISTORY: Dx: Cervical Radiculopathy. TECHNIQUE: Fluoroscopy was provided for the referring physician for guidance with performing pain clinic injection procedure. COMPARISON: No exams were available for comparison FINDINGS: Please see procedure note for details. Fluoro time: 34 seconds RADIATION DOSE DELIVERED: Kar=2.7 mGy
[2025-02-23] MEDS: Dexamethasone Sod. Phos./Pres-Free 10 MG/ML VIAL IJ (11:20)
[2025-02-23] MEDS: Epidural Tray 1 EACH MC (11:20)
[2025-02-23] MEDS: Omnipaque 240 MG/ML 50 ML BTL IJ (11:20)
== END 2025-02-23 09:22 | disposition home or self-care (01) ==
LOC: PC 09:21
PROVIDERS: PCP Family Medicine; Visit Provider Preventive Medicine Occupational Medicine
DX: M54.12 Radiculopathy, cervical region (principal)
CPT/HCPCS: 36415; 62321; 72040; 85610; J1100; Q9967

== ENCOUNTER 2025-03-29 13:50 | Outpatient (CLI) | payer BC, SELFPAY ==
[2025-03-29 14:19] VITALS: BP 152/88; PULSE 78; RESP 20; TEMP 37; O2SAT 98
[2025-03-29 14:47] LABS: INR 1.1 (0.9-1.1); Prothrombin Time 11.1 sec (9.1-11.1)
[2025-03-29 15:04] VITALS: PULSE 74; PULSE 75; RESP 22; O2SAT 100
[2025-03-29 15:05] VITALS: BP 214/86; PULSE 76; PULSE 77; RESP 16; O2SAT 100
[2025-03-29 15:10] VITALS: PULSE 81; PULSE 82; RESP 16; O2SAT 100
[2025-03-29 15:16] VITALS: BP 177/88; PULSE 76
--- NOTE | 2025-03-29 15:18 | DI.RAD_ITS ---
Exam(s) XR PAIN CLINIC LUMBAR SP 2V EXAM: XR PAIN CLINIC LUMBAR SP 2V CLINICAL HISTORY: Dx: Lumbar Radiculopathy TECHNIQUE: 2D and realtime digital imaging was performed. CONTRAST MATERIAL: Refer to procedure report. COMPARISON: No exams were available for comparison FINDINGS: Fluoroscopy was provided for Dr. Wagoner during the performance of a caudal epidural steroid injection. Please refer to the procedure report for complete details. Ka,r=3.6 mGy IMPRESSION: RADIATION DOSE DELIVERED: 0.0 0.0 0
[2025-03-29] MEDS: Omnipaque 240 MG/ML 50 ML BTL IJ (15:20)
[2025-03-29] MEDS: methylPREDNISolone ACETATE 40 MG/ML VIAL IJ (15:20)
[2025-03-29] MEDS: Nerve Block Tray 1 EACH MC (15:20)
--- NOTE | 2025-03-29 15:24 | PDOC.PAIN_ITS ---
Date of service: 03/29/25 Time of Service: 15:24 Pain Managment Procedure Note Procedure Note Procedure Note: PROCEDURE NOTE CAUDAL EPIDURAL STEROID INJECTION Date of Service: March 29, 2025 Patient: Artem Pedraza Provider: Murali Wagoner DO, MPH Artem Pedraza has [facility] for caudal epidural steroid injection. Pre-operative diagnosis: Lumbosacral Radiculopathy, ICD-10 M54.17 Post-operative diagnosis: Same Pre-Procedure Pain: VAS= 7/10. COMMENTS: Patient on Coumadin and has been off for 5 days. His INR today is 1.1. He knows to restart the Coumadin tomorrow. Artem was interviewed and the medical record was reviewed. There were no medical, pharmacologic, radiographic or other structural contraindications to attempting fluoroscopically guided epidural steroid injection. Risks and expected side effects as well as potential benefit of the procedure were reviewed with Artem , and the patient's voiced concerns were addressed. The printed consent form was signed. Standard time-out procedure was performed. Artem was placed in the prone position on the fluoroscopy table and automated blood pressure cuff and pulse oximeter applied. The skin entry point for entering/approaching the epidural space by a caudal approach through the sacral hiatus ed identified with surgical skin marking. Following thorough chlorhexidine preparation of the skin and draping and 1% lidocaine infiltration of the skin entry point and subcutaneous tissues, a 17 gauge Touhy needle was placed under fluoroscopic guidance into the epidural space. Needle tip placement and depth were aided and confirmed by fluoroscopy in the lateral and AP position. There was no paresthesia or return of blood or CSF through the needle. 1 cc of Omnipaque 240 was injected with clear epidural spread confirmed with fluoroscopy. An Arrow 19G radio-opaque epidural catheter was advanced into the epidural space to the L5-S1 level and 2 cc of Omnipaque 240 was injected with clear epidural spread. 80 mg of Depo-Medrol was injected. There was no unusual discomfort expressed by Artem. The needle and catheter were then flushed with 1 cc of 1% Lidocaine and they were removed together without difficulty (49 cc of Omnipaque was wasted). Artem was observed and was without hemodynamic, neurologic, or allergic reactions. Fluoroscopic images were digitally archived. Yesenia vital signs were stable throughout the procedure and were as recorded in the docflowsheet by the nursing staff. If given, dosages of intravenous drugs for anxiolysis and analgesia were documented in MAR. Follow up plans and appointments were discussed with Artem. Post procedure instruction was given as documented in nursing documentation and having met discharge criteria, Artem was [facility] the [facility]. COMMENTS: No apparent complications. Post-procedure pain: VAS= 4/10. If the patient receives at least 50% improvement in pain and/or function for at least 3 months, this procedure can be repeated. I personally completed the entire procedure. MURALI WAGONER DO, MPH [employer]BP[employer] - Subspecialty board certification in Pain Medicine [facility] Coding Conscious Sedation used for procedure: No CPT Codes: Inj Spine L/S w/Imaging - [id number] ([id number] ~G) Additional Codes: Date of Service () Diagnoses: lumbar radiculopathy
== END 2025-03-29 13:51 | disposition home or self-care (01) ==
LOC: PC 13:50
PROVIDERS: PCP Family Medicine; Visit Provider Preventive Medicine Occupational Medicine
DX: M54.17 Radiculopathy, lumbosacral region (principal)
CPT/HCPCS: 62323; 72100; 85610; J1010; Q9967